=== PATIENT | male | born 1945 | race Caucasian/White ===

== ENCOUNTER 2017-10-08 14:24 | Inpatient (IN) | payer OTHER, MEDICARE ==
[~2017-10-08] VITALS: Ht 175.3 cm; Wt 119.0 kg
[~2017-10-08 14:24] MED LIST: ASPI81 PO; GABA400 PO; GLYCOPYRROLATE 1 MG/5 ML SYRINGE IV PUSH ONE; ISOS5 PO; LIDOCAINE HCL 1% PF 5 ML SYRINGE OTHER ONE; MELO15TA2 PO; NEOSTIGMINE 5 MG/5 ML SYRINGE IV PUSH ONE; PROPOFOL 200 MG/20 ML AMP IV ONE; ROCURONIUM INJ 50 MG/5 ML SYRINGE IV PUSH ONE; ROSU20 PO; SUCCINYLCHOLINE CHLORIDE 100 MG/5 ML SYRINGE IV PUSH ONE; TRIL300T PO
[2017-10-08 14:48] VITALS: BP 165/82; PULSE 74; RESP 16; TEMP 98.5; O2SAT 95
--- NOTE | 2017-10-08 15:25 | PD ---
HPI Chief Complaint: Abdominal Pain Time Seen by Provider: 15:25 Travel History International Travel<30 days: No Contact w/Intl Traveler<30days: No Traveled to known affect area: No History of Present Illness HPI Patient presents with acute right lower abdominal pain since this morning. Denies any history of kidney stones. Describes the pain is constant nature and dull. Denies nausea or vomiting. Reports no change in stools. Reports urinary frequency. Denies fever. No new rashes. Denies any previous abdominal surgeries. PFSH Past Medical History Hx Anticoagulant Therapy: Yes (asa 81mg) Asthma: No Autoimmune Disease: No Blood Disorders: No Cancer: No Cardiac Catheterization: Yes (May.17) Cardiovascular Problems: Yes (htn on meds) High Cholesterol: Yes COPD: No Coronary Artery Disease: Yes Diabetes: No Endocrine: No Glaucoma: No Genitourinary: No Hepatitis: No Hiatal Hernia: No Hypertension: No Immune Disorder: No Musculoskeletal: No Neurologic: Yes Psychiatric: No Reproductive: No Respiratory: No Seizures: Yes Thyroid Disease: No Past Surgical History Abdominal Surgery: No Cardiac Surgery: No Ear Surgery: No Endocrine Surgery: No Eye Surgery: No Genitourinary Surgery: No Gynecologic Surgery: No Oral Surgery: No Pacemaker: No Thoracic Surgery: No Social History Alcohol Use: Yes (1-2 BEERS AFTER GOLF ON TUESDAY) Tobacco Use: No Substance Use: No Allergies-Medications (Allergen,Severity, Reaction): Coded Allergies: No Known Allergies (Verified Adverse Reaction, Unknown, 10/08/17) Reported Meds & Prescriptions Reported Meds & Active Scripts Active Reported Simvastatin 20 Mg Tab 20 Mg PO DAILY Tamsulosin (Tamsulosin HCl) 0.4 Mg Cap 0.4 Mg HS Coq10 (Coenzyme Q10 (Ubidecarenone)) 50 Mg Cap Lisinopril 2.5 Mg Tab 2.5 Mg PO DAILY Furosemide 20 Mg Tab 20 Mg PO DAILY Amlodipine (Amlodipine Besylate) 5 Mg Tab 5 Mg PO DAILY Vitamin D3 (Cholecalciferol) 1,000 Unit Tab 1,000 Units PO DAILY Aspirin 81 Mg Chew 81 Mg CHEW DAILY Review of Systems General / Constitutional: No: Fever Eyes: No: Visual changes HENT: No: Headaches Cardiovascular: No: Chest Pain or Discomfort Respiratory: No: Shortness of Breath Gastrointestinal: Positive: Abdominal Pain Genitourinary: No: Dysuria Musculoskeletal: No: Pain Skin: No Rash Neurologic: No: Weakness Psychiatric: No: Depression Endocrine: No: Polydipsia Hematologic/Lymphatic: No: Easy Bruising Physical Exam Narrative GENERAL: Well-nourished, well-developed patient. SKIN: Focused skin assessment warm/dry. HEAD: Normocephalic. EYES: No scleral icterus. No injection or drainage. NECK: Supple, trachea midline. No JVD or lymphadenopathy. CARDIOVASCULAR: Regular rate and rhythm without murmurs, gallops, or rubs. RESPIRATORY: Breath sounds equal bilaterally. No accessory muscle use. GASTROINTESTINAL: Abdomen soft, diffusely tender right lower and right upper quadrant, nondistended. MUSCULOSKELETAL: No cyanosis, or edema. BACK: Nontender without obvious deformity. No CVA tenderness. Data Data Last Documented VS Vital Signs Date Time Temp Pulse Resp B/P (MAP) Pulse Ox O2 Delivery O2 Flow Rate FiO2 10/08/17 18:16 73 18 164/90 (114) 94 Room Air 10/08/17 14:48 98.5 Orders Orders Complete Blood Count With Diff (10/08/17 15:25) Comprehensive Metabolic Panel (10/08/17 15:25) Lipase (10/08/17 15:25) Lactic Acid (10/08/17 15:25) Urinalysis - C+S If Indicated (10/08/17 15:25) Ct Abd/Pel W Iv Contrast(Rout) (10/08/17 15:25) Iv Access Insert/Monitor (10/08/17 15:25) Ecg Monitoring (10/08/17 15:25) Oximetry (10/08/17 15:25) Pantoprazole Inj (Protonix Inj) (10/08/17 15:30) Sodium Chloride 0.9% Flush (Ns Flush) (10/08/17 15:30) Dicyclomine Inj (Bentyl Inj) (10/08/17 15:30) Acetamin-Hydrocod 325-5 Mg ([place] 5-325 (10/08/17 18:00) Iohexol 350 Inj (Omnipaque 350 Inj) (10/08/17 18:00) Prothrombin Time / Inr (Pt) (10/08/17 18:39) Admit Order (Ed Use Only) (10/08/17 ) Vital Signs (Adult) Q4H (10/08/17 18:48) Diet Npo (10/08/17 Dinner) Activity Oob With Assistance (10/08/17 18:48) Notify Dr: Other (10/08/17 18:48) Labs Laboratory Tests Test 10/08/17 16:16 10/08/17 17:15 White Blood Count 11.5 TH/MM3 Red Blood Count 4.62 MIL/MM3 Hemoglobin 13.9 GM/DL Hematocrit 41.6 % Mean Corpuscular Volume 89.9 FL Mean Corpuscular Hemoglobin 30.2 PG Mean Corpuscular Hemoglobin Concent 33.6 % Red Cell Distribution Width 13.2 % Platelet Count 232 TH/MM3 Mean Platelet Volume 7.7 FL CBC Comment AUTO DIFF Differential Total Cells Counted 100 Neutrophils % (Manual) 84 % Band Neutrophils % 3 % Lymphocytes % 8 % Monocytes % 3 % Eosinophils % 2 % Neutrophils # (Manual) 10.0 TH/MM3 Differential Comment FINAL DIFF MANUAL Platelet Estimate NORMAL Platelet Morphology Comment NORMAL Red Cell Morphology Comment NORMAL Urine Collection Type CLEAN CATCH Urine Color YELLOW Urine Turbidity SL CLOUDY Urine pH 8.0 Urine Specific [place] 1.015 Urine Protein NEG mg/dL Urine Glucose (UA) NEG mg/dL Urine Ketones NEG mg/dL Urine Occult Blood TRACE Urine Nitrite NEG Urine Bilirubin NEG Urine Urobilinogen 0.2 MG/DL Urine Leukocyte Esterase NEG Urine RBC 0-3 /hpf Urine Squamous Epithelial Cells 0-5 /hpf Urine Amorphous Sediment FEW Microscopic Urinalysis Comment CULT NOT INDICATED Urine Collection Time 1616 Blood Urea Nitrogen 10 MG/DL Creatinine 1.00 MG/DL Random Glucose 115 MG/DL Total Protein 7.5 GM/DL Albumin 3.7 GM/DL Calcium Level 9.4 MG/DL Alkaline Phosphatase 104 U/L Aspartate Amino Transf (AST/SGOT) 19 U/L Alanine Aminotransferase (ALT/SGPT) 21 U/L Total Bilirubin 0.7 MG/DL Sodium Level 135 MEQ/L Potassium Level 3.9 MEQ/L Chloride Level 101 MEQ/L Carbon Dioxide Level 28.8 MEQ/L Anion Gap 5 MEQ/L Estimat Glomerular Filtration Rate 74 ML/MIN Lactic Acid Level 0.8 mmol/L Lipase 109 U/L [facility] Medical Decision Making Medical Screen Exam Complete: Yes Emergency Medical Condition: Yes Differential Diagnosis Ischemic bowel, small bowel obstruction, nephrolithiasis, urinary tract infection, appendicitis Narrative Course Assessment and plan discussed with patient and at bedside. Mild leukocytosis, otherwise labs within normal limits. Coags pending. Last 72 hours Impressions Abdomen/Pelvis CT 10/08/17 1525 Signed Impressions: Service Date/Time: Sunday, October 08, 2017 17:52 - CONCLUSION: 1. Acute appendicitis. Small amount of free fluid is seen in this region and the possibility of a perforation is difficult to exclude. 2. Large umbilical hernia containing fat and small bowel. 3. Diverticulosis. 4. Atherosclerosis. Ganga Luong MD Physician Communication Physician Communication Spoke to Dr. Ly who recommends transfer to the [facility] for surgery this evening. Spoke to Dr Morris who is in agreement will admit Diagnosis Primary Impression: Appendicitis Qualified Codes: K35.80 - Unspecified acute appendicitis Jose Vann MD Oct 08, 2017 15:25
[2017-10-08] MEDS ORDERED: DICYCLOMINE HCL 20 MG/2 ML VIAL IM ONE (15:30)
[2017-10-08] MEDS ORDERED: PANTOPRAZOLE SODIUM 40 MG VIAL IVP ONE (15:30)
[2017-10-08] MEDS ORDERED: SODIUM CHLORIDE 0.9% FLUSH 10 ML FLUSH IV FLUSH PRN ×2 (15:30→19:00)
[2017-10-08] MEDS ORDERED: FURO20TA PO (15:31)
[2017-10-08] MEDS ORDERED: SIMV20TA PO (15:31)
[2017-10-08] MEDS ORDERED: COQ150CA (15:31)
[2017-10-08] MEDS ORDERED: ASPI-516 CHEW (15:31)
[2017-10-08] MEDS ORDERED: VITA100018 PO (15:31)
[2017-10-08] MEDS ORDERED: AMLO5TAB2 PO (15:31)
[2017-10-08] MEDS ORDERED: TAMS0.4C4 (15:31)
[2017-10-08] MEDS ORDERED: LISI2.5T3 PO (15:31)
[2017-10-08 16:24] LABS: HEMATOCRIT 41.6 % (39.0-51.0); HEMOGLOBIN 13.9 GM/DL (13.0-17.0); MEAN CELL VOLUME 89.9 FL (80.0-100.0); MEAN CORPUSCULAR HEMOGLOBIN 30.2 PG (27.0-34.0); MEAN CORPUSCULAR HGB CONC 33.6 % (32.0-36.0); MEAN PLATELET VOLUME 7.7 FL (7.0-11.0); PLATELET COUNT 232 TH/MM3 (150-450); RED BLOOD COUNT 4.62 MIL/MM3 (4.50-5.90); RED CELL DISTRIBUTION WIDTH 13.2 % (11.6-17.2); WHITE BLOOD COUNT 11.5 TH/MM3 (4.0-11.0)
[2017-10-08 16:26] LABS: BILIRUBIN, URINE NEG (NEG); BLOOD, URINE TRACE (NEG); GLUCOSE,URINE NEG (NEG); KETONE, URINE NEG (NEG); NITRITE,URINE NEG (NEG); URINE COLOR YELLOW (YELLW/STRAW); URINE LEUKOCYTE ESTERASE NEG (NEG)
[2017-10-08 17:07] LABS: AMORPHOUS SEDIMENT, URINE FEW; RBC, URINE 0-3 /hpf (0-3); SQUAMOUS EPITHELIAL CELL URINE 0-5 /hpf (0-5)
[2017-10-08 17:15] VITALS: O2SAT 98
[2017-10-08 17:16] LABS: BANDS 3 % (0-6); LYMPHOCYTES 8 % (9-44); MONOCYTES 3 % (0-8); POLYS (SEG NEUTROPHILS) 84 % (16-70)
[2017-10-08 17:30] LABS: CHLORIDE 101 MEQ/L (98-107); SODIUM (NA) 135 MEQ/L (136-145)
[2017-10-08 17:34] LABS: ALBUMIN 3.7 GM/DL (3.4-5.0); BICARBONATE 28.8 MEQ/L (21.0-32.0); CALCIUM 9.4 MG/DL (8.5-10.1); GLUCOSE,RANDOM 115 MG/DL (74-106)
[2017-10-08 17:35] LABS: BLOOD UREA NITROGEN 10 MG/DL (7-18)
[2017-10-08 17:37] LABS: ALT (GPT) 21 U/L (12-78); AST (GOT) 19 U/L (15-37)
[2017-10-08 17:38] LABS: GLOMERULAR FILTRATION RATE 74 ML/MIN (>89)
[2017-10-08 17:39] LABS: TOTAL BILIRUBIN ADULT 0.7 MG/DL (0.2-1.0); TOTAL PROTEIN 7.5 GM/DL (6.4-8.2)
[2017-10-08 17:40] LABS: ALKALINE PHOSPHATASE 104 U/L (45-117)
[2017-10-08] MEDS ORDERED: ACETAMINOPHEN/HYDROcodone 325 MG/5 MG TAB PO ONE (18:00)
[2017-10-08] MEDS ORDERED: IOHEXOL 350 MG/ML 10 ML VIAL (for RAD DIAG) IVCONTRAST ONE (18:00)
[2017-10-08 18:16] VITALS: BP 164/90; PULSE 73; RESP 18; O2SAT 94
--- NOTE | 2017-10-08 18:28 | RADRPT ---
EXAM DATE/TIME: 10/08/2017 17:52 [place] COMPARISON: No previous studies available for comparison. INDICATIONS : Right lower abdominal pain since yesterday. IV CONTRAST: 75 cc Omnipaque 350 (iohexol) IV ORAL CONTRAST: No oral contrast ingested. RADIATION DOSE: 22.28 CTDIvol (mGy) MEDICAL HISTORY : Hypertension. CAD SURGICAL HISTORY : None. ENCOUNTER: Initial ACUITY: 2 days PAIN SCALE: 9/10 LOCATION: Right lower quadrant TECHNIQUE: Volumetric scanning of the abdomen and pelvis was performed. Using automated exposure control and ad justment of the mA and/or kV according to patient size, radiation dose was kept as low as reasonably achievable to obtain optimal diagnostic quality images. DICOM format image data is available electro nically for review and comparison. FINDINGS: Lung bases are clear. There are degenerative changes of the spine noted. No pleural or pericardial ef fusions. Liver, gallbladder, kidneys, adrenals, spleen, pancreas are unremarkable. Prostate, urinary bladder are unremarkable. Diverticulosis of the sigmoid and descending colon without diverticulitis. There are inflammatory changes seen in the right lower quadrant near the base of the cecum and surrou nding the appendix which is abnormally enlarged measuring up to 1.4 cm in diameter. The appearance is characteristic of acute appendicitis. No free air identified, however a small amount of free fluid i s present.. There is a large umbilical hernia measuring 4.4 cm in transverse dimension at the intra-a bdominal wall, containing a small bowel loop and intra-abdominal fat, hernia sac measuring 9.7 x 6.3 cm in transverse and AP dimension. Atherosclerotic calcifications are seen. CONCLUSION: 1. Acute appendicitis. Small amount of free fluid is seen in this region and the possibility of a per foration is difficult to exclude. 2. Large umbilical hernia containing fat and small bowel. 3. Diverticulosis. 4. Atherosclerosis. Ganga Luong MD on October 08, 2017 at 18:22 Board Certified Radiologist. This report was verified electronically.
[2017-10-08] MEDS ORDERED: NALOXONE HCL 0.4 MG/ML AMP IV PUSH PRN (19:00)
[2017-10-08] MEDS ORDERED: BISACODYL 10 MG SUPP RECTAL PRN (19:00)
[2017-10-08] MEDS ORDERED: LACTULOSE SYRUP 20 GM/30 ML CUP PO PRN (19:00)
[2017-10-08] MEDS ORDERED: ONDANSETRON HCL 4 MG/2 ML VIAL IVP PRN (19:00)
[2017-10-08] MEDS ORDERED: ACETAMINOPHEN 325 MG TAB PO PRN (19:00)
[2017-10-08 19:01] LABS: PROTHROMBIN TIME - PATIENT 10.4 SEC (9.8-11.6)
[2017-10-08 20:15] VITALS: PULSE 74
[2017-10-08] MEDS ORDERED: SODIUM CHLORID 0.9% 500 ML IV PRN (20:15)
[2017-10-08] MEDS ORDERED: CHLORHEXIDINE GLUCONATE 2 % 1 PACK (2 CLOTHS) TOPICAL PRN (20:15)
[2017-10-08] MEDS ORDERED: LACTATED RINGER'S 1000 ML IV PRN (20:15)
[2017-10-08] MEDS ORDERED: POVIDONE IODINE 5% (ANTISEPSIS KIT) 4 APPLICATIONS EACH NARE PRN (20:15)
[2017-10-08] MEDS ORDERED: METOPROLOL TARTRATE 25 MG TAB PO PRN (20:15)
[2017-10-08] MEDS: SODIUM CHLORIDE 0.9% FLUSH 10 ML FLUSH IV FLUSH SCH (20:39)
[2017-10-08] MEDS ORDERED: PIPERACILLIN/TAZ 4.5 GM VIAL 4.5 GM in SODIUM CHLORIDE 0.9% INJ 100 ML IV ONE (21:00)
[2017-10-08] MEDS: DOCUSATE SODIUM 50 MG/SENNA 8.6 MG TAB PO SCH (21:00)
--- NOTE | 2017-10-08 21:08 | MH ---
cc: Stacie Louis MD DATE OF ADMISSION: 10/08/2017 ADMITTING DIAGNOSIS: Acute appendicitis. HISTORY OF PRESENT DISEASE: This is a 71-year-old male with very complex past medical history, who presents to the emergency room at the [facility] with history of pain since this morning. The patient states that the pain is constant, dull, was initially mid abdomen now it is more in the right lower quadrant. No nausea or vomiting. No diarrhea. The patient was worked up, found to have a clinical picture of acute appendicitis as well as CT findings, hence the admission. PAST MEDICAL HISTORY: That of coronary artery disease and IN with catheterization in 2006, hypercholesteremia, diabetes but the patient is not taking medications, seizures. SURGICAL HISTORY: That of rotator cuff surgery in the past. SOCIAL HISTORY: The patient drinks about to 1-2 beers a day. Does not smoke. 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 MEDICATIONS: Include aspirin, amlodipine, Lasix, lisinopril, tamsulosin and simvastatin. PHYSICAL EXAMINATION: GENERAL: Reveals a 71-year-old male appearing older than his actual age. HEENT: Normocephalic. No trauma to the head. Pupils equal, reactive. Extraocular muscles intact. NECK: Bilateral carotid pulses and a faint right-sided bruit. CHEST: Bilateral breath sounds, decreased over both lung mann consistent with moderate COPD. The patient has barrel chest and protrusion of the ribs. HEART: Regular rate and rhythm. No murmurs. ABDOMEN: Somewhat obese, soft, hypoactive bowel sounds. Large umbilical hernia which is clearly stuck and was inflamed, probably several times in the midline measuring about 10 cm in diameter. On exam, the patient is very tender in the right lower quadrant where there is positive rebound and guarding. There is referred tenderness from the left side. Groins are normal. EXTREMITIES: The patient has palpable femoral pulses. Distal pulses only by Doppler. He has posterior tibial and dorsalis pedis by Doppler, which are not very strong. No signs of acute vascular deficit. The patient has edema in lower extremities, more noticeable below the level of the knee, which some of it is noncompressible and chronic, sounds like this is pitting edema from clearly poorly controlled hypertension. BACK: Grossly normal with some kyphoscoliosis. NEUROLOGIC: The patient is grossly intact. IMPRESSION: Patient with a myriad of medical problems and now acute appendicitis. In the face of a large umbilical hernia I believe this will rim turning finisher to be open surgery, but will give it a laparoscopic try with modified approach and see how it goes. Stacie Louis MD SJ/rt , 08:48 PM , 09:07 PM
[2017-10-08] MEDS ORDERED: MORPHINE SULFATE 2 MG/ML SYRINGE IV PUSH PRN (22:15)
[2017-10-08] MEDS ORDERED: DO NOT ADM ANY ANTICOAGULANT DRUGS PRN (22:18)
[2017-10-08] MEDS ORDERED: *morphine SULFATE 4 MG/ML PERIprocedure ONLY ONE (22:29)
[2017-10-08] MEDS: SODIUM CHLOR 0.9% 1000 ML INJ 1,000 ML IV SCH (22:30)
[2017-10-08] MEDS ORDERED: PIPERACIL-TAZO 3.375 GM PREMIX 50 ML IV SCH (22:30)
--- NOTE | 2017-10-08 22:39 | MP ---
cc: Stacie Louis MD DATE OF OPERATION: 10/08/2017 POSTOPERATIVE DIAGNOSIS: Acute gangrenous appendicitis. POSTOPERATIVE DIAGNOSIS: Acute gangrenous appendicitis. PROCEDURE PERFORMED: Attempted laparoscopic conversion to open appendectomy. SURGEON: Stacie Louis MD ANESTHESIA: General. ESTIMATED BLOOD LOSS: 50 mL DESCRIPTION OF PROCEDURE: The patient prepped and draped in usual fashion and first a supraumbilical small incision was made and Kwame cannula placed under direct vision. The incision is made fairly high and paramedial because the patient has a huge umbilical hernia and I was hoping I could get around this thing while doing the repair. However, upon the entry of the abdomen is noted the patient has fairly significant adhesions between the small bowel, anterior abdominal wall, omentum, and surrounding organs including the hernia being in the way, so this approach is abandoned. This converted to open appendectomy. Right lower quadrant incision is made about an inch above McBurney's point, deepened down to external oblique aponeurosis, which was opened in direction of the fibers, retracted laterally and then internal and transversus abdominis muscle are opened by muscle splitting incision. Peritoneum reached. Peritoneum is opened transversely and the abdomen entered. There was some turbid fluid present, which was suctioned off. The cecum is delivered. Appendix and is in the paracecal position, measures about 4 inches in length. It is swollen and distal part where there is a gangrenous purulent area. The appendix was elevated with Jordyn clamp and then mesoappendix is tied off with a 0 Vicryl stick tie and the appendix is amputated with a KENAN stapler. The area irrigated with saline. Meticulous hemostasis obtained with the 2 more 0 Vicryl stitches [id number] and then everything dropped back into the abdomen. The small bowel was run for distal part. No abnormalities are found. Abdomen was irrigated with saline and closed in layers, using #1 Vicryl for peritoneum, #1 Vicryl for internal oblique muscle approximation and #1 Vicryl [id number] for external oblique aponeurosis. Skin was approximated with hal. The supraumbilical incision was closed with 0 Vicryl [id number] and hal. The patient tolerated the procedure well and was taken to recovery room in stable condition. It should be noted the patient will be admitted to medicine. I talked to ____ about it and I will consult. Pain medication orders are placed. Stacie Louis MD SJ/rt , 10:20 PM , 10:39 PM
[2017-10-08] MEDS ORDERED: diphenhydrAMINE HCL 50 MG/ML VIAL ONE (22:44)
[2017-10-08] MEDS ORDERED: HYDROmorphone HCL PF 2 MG/ML VIAL ONE ×2 (22:53→23:13)
[2017-10-08] MEDS ORDERED: ENOXAPARIN SODIUM 40 MG/0.4 ML SYRINGE SQ SCH (23:00)
[2017-10-08] MEDS: fentaNYL 25 MCG/HR PATCH T-DERMAL SCH (23:22)
--- NOTE | 2017-10-08 23:51 | HHI.HP ---
[facility] Phys[facility] Unknown Admission Diagnosis Appendicitis Diagnoses: Chief Complaint: Abdominal pain Travel History International Travel<30 Days: No Contact w/Intl Traveler <30 Da: No Traveled to Known Affected Are: No History of Present Illness 71-year-old male with a history of hypertension, hyperlipidemia, CAD, sleep apnea and BPH resented to the ED with complaints of right-sided abdominal pain. Patient states the pain was a constant, 8/10, dull mid right abdominal pain with associated nausea and no radiation when he presented to the ED. Patient was examined in PACU status post appendectomy and currently states his pain is a 5/10 and has decreased with the use of Dilaudid. He currently denies any chest pain, shortness of breath, fevers or chills. Review of Systems Except as stated in HPI: all other systems reviewed are Neg Past Family Social History Past Medical History Hyperlipidemia Hypertension BPH CAD Past Surgical History Right rotator cuff surgery Reported Medications Reported Meds & Active Scripts Active Reported Simvastatin 20 Mg Tab 20 Mg PO DAILY Tamsulosin (Tamsulosin HCl) 0.4 Mg Cap 0.4 Mg HS Coq10 (Coenzyme Q10 (Ubidecarenone)) 50 Mg Cap Lisinopril 2.5 Mg Tab 2.5 Mg PO DAILY Furosemide 20 Mg Tab 20 Mg PO DAILY Amlodipine (Amlodipine Besylate) 5 Mg Tab 5 Mg PO DAILY Vitamin D3 (Cholecalciferol) 1,000 Unit Tab 1,000 Units PO DAILY Aspirin 81 Mg Chew 81 Mg CHEW DAILY Allergies: Coded Allergies: morphine (Verified Allergy, Intermediate, HIVES, 10/08/17) Active Ordered Medications Current Medications Medications (Trade) Dose Ordered Sig/Angi Route Start Time Stop Time Status Last Admin Sodium Chloride 1,000 ml @ 100 mls/hr Q10H IV 10/08/17 18:51 10/08/17 22:30 (NS Flush) 2 ml UNSCH PRN IV FLUSH 10/08/17 19:00 (NS Flush) 2 ml BID IV FLUSH 10/08/17 21:00 10/08/17 20:39 (Tylenol) 650 mg Q4H PRN PO 10/08/17 19:00 (Zofran Inj) 4 mg Q6H PRN IVP 10/08/17 19:00 (Narcan Inj) 0.4 mg UNSCH PRN IV PUSH 10/08/17 19:00 (Callie-Colace) 1 tab BID PO 10/08/17 21:00 (Milk Of Magnesia Liq) 30 ml Q12H PRN PO 10/08/17 19:00 (Senokot) 17.2 mg Q12H PRN PO 10/08/17 19:00 (Dulcolax Supp) 10 mg DAILY PRN RECTAL 10/08/17 19:00 (Lactulose Liq) 30 ml DAILY PRN PO 10/08/17 19:00 (Duragesic 25 Mcg Patch.72 Hr) 1 patch Q3D T-DERMAL 10/08/17 22:15 10/08/17 23:22 (Percocet 5-325 Mg) 1 tab Q4H PRN PO 10/08/17 22:15 Miscellaneous Information ALL NURSING DEPARTME... UNSCH PRN .XX 10/08/17 22:18 10/09/17 22:17 (Lovenox Inj) 40 mg Q24H SQ 10/09/17 23:00 Piperacillin Sod/ Tazobactam Sod 50 ml @ 100 mls/hr Q8H IV 10/09/17 05:00 10/09/17 21:29 (Dilaudid Pf Inj) 0.5 mg Q4H PRN IV PUSH 10/08/17 23:30 (Duoneb Neb) 1 ampule ONCE ONCE NEB 10/09/17 00:30 10/09/17 00:31 UNV (Duoneb Neb) 1 ampule Q6HR NEB NEB 10/09/17 04:00 UNV Family History Dad: [place] Social History Tobacco use: Quit 30 years ago Alcohol use: Occasionally Physical Exam Vital Signs Vital Signs Date Time Temp Pulse Resp B/P (MAP) Pulse Ox O2 Delivery O2 Flow Rate FiO2 10/08/17 22:18 97.9 77 28 150/75 (100) 90 Simple Mask 8 10/08/17 20:15 97.8 74 24 157/74 (101) 94 10/08/17 20:15 74 10/08/17 20:15 94 10/08/17 18:16 73 18 164/90 (114) 94 Room Air 10/08/17 17:15 98 Room Air 10/08/17 14:48 98.5 74 16 165/82 (109) 95 Physical Exam GENERAL: This is a well-nourished, obese patient, in no apparent distress. SKIN: No rashes, ecchymoses or lesions. Cool and dry. Right abdomen incision covered with [place]. HEAD: Atraumatic. Normocephalic. EYES: Pupils equal round and reactive. ENT: Nose without bleeding, purulent drainage or septal hematoma. Airway patent. CARDIOVASCULAR: Regular rate and rhythm without murmurs, gallops, or rubs. RESPIRATORY: Clear to auscultation. Diminished bases. Breath sounds equal bilaterally. No wheezes, rales, or rhonchi. GASTROINTESTINAL: Abdomen soft, tender, nondistended. Large umbilical hernia. Right abdomen incision. No guarding. MUSCULOSKELETAL: Extremities without clubbing, cyanosis, or edema. No calf tenderness. NEUROLOGICAL: Awake and alert. Motor and sensory grossly within normal limits. Normal speech. Laboratory Laboratory Tests Test 10/08/17 16:16 10/08/17 17:15 White Blood Count 11.5 Red Blood Count 4.62 Hemoglobin 13.9 Hematocrit 41.6 Mean Corpuscular Volume 89.9 Mean Corpuscular Hemoglobin 30.2 Mean Corpuscular Hemoglobin Concent 33.6 Red Cell Distribution Width 13.2 Platelet Count 232 Mean Platelet Volume 7.7 CBC Comment AUTO DIFF Differential Total Cells Counted 100 Neutrophils % (Manual) 84 Band Neutrophils % 3 Lymphocytes % 8 Monocytes % 3 Eosinophils % 2 Neutrophils # (Manual) 10.0 Differential Comment FINAL DIFF MANUAL Platelet Estimate NORMAL Platelet Morphology Comment NORMAL Red Cell Morphology Comment NORMAL Prothrombin Time 10.4 Prothromb Time International Ratio 1.0 Urine Collection Type CLEAN CATCH Urine Color YELLOW Urine Turbidity SL CLOUDY Urine pH 8.0 Urine Specific [place] 1.015 Urine Protein NEG Urine Glucose (UA) NEG Urine Ketones NEG Urine Occult Blood TRACE Urine Nitrite NEG Urine Bilirubin NEG Urine Urobilinogen 0.2 Urine Leukocyte Esterase NEG Urine RBC 0-3 Urine Squamous Epithelial Cells 0-5 Urine Amorphous Sediment FEW Microscopic Urinalysis Comment CULT NOT INDICATED Urine Collection Time 1616 Blood Urea Nitrogen 10 Creatinine 1.00 Random Glucose 115 Total Protein 7.5 Albumin 3.7 Calcium Level 9.4 Alkaline Phosphatase 104 Aspartate Amino Transf (AST/SGOT) 19 Alanine Aminotransferase (ALT/SGPT) 21 Total Bilirubin 0.7 Sodium Level 135 Potassium Level 3.9 Chloride Level 101 Carbon Dioxide Level 28.8 Anion Gap 5 Estimat Glomerular Filtration Rate 74 Lactic Acid Level 0.8 Lipase 109 Result Diagram: 10/08/17 1616 10/08/17 1715 Imaging Last Impressions Abdomen/Pelvis CT 10/08/17 1525 Signed Impressions: Service Date/Time: Sunday, October 08, 2017 17:52 - CONCLUSION: 1. Acute appendicitis. Small amount of free fluid is seen in this region and the possibility of a perforation is difficult to exclude. 2. Large umbilical hernia containing fat and small bowel. 3. Diverticulosis. 4. Atherosclerosis. MD Alfredo Higgins VTE Risk Assessment Alfredo VTE Risk Assessment: No/Low Risk (score <= 1) Caprini Risk Assessment Model Point Value = 1 Point Value = 2 Point Value = 3 Point Value = 5 Age 41-60 Minor surgery BMI > 25 kg/m2 Swollen legs Varicose veins or History of unexplained or recurrent spontaneous Oral contraceptives or hormone replacement Sepsis (< 1 month) Serious lung disease, including pneumonia (< 1 month) Abnormal pulmonary function Acute myocardial infarction Congestive heart failure (< 1 month) History of inflammatory bowel disease Medical patient at bed rest Age 61-74 Arthroscopic surgery Major open surgery (> 45 min) Laparoscopic surgery (> 45 min) Malignancy Confined to bed (> 72 hours) Immobilizing plaster cast Central venous access Age >= 75 History of VTE Family history of VTE Factor V Leiden Prothrombin [id number] Lupus anticoagulant Anticardiolipin antibodies Elevated serum homocysteine Heparin-induced thrombocytopenia Other congenital or acquired thrombophilia Stroke (< 1 month) Elective arthroplasty Hip, pelvis, or leg fracture Acute spinal cord injury (< 1 month) Prophylaxis Regimen Total Risk Factor Score Risk Level Prophylaxis Regimen 0-1 Low Early ambulation 2 Moderate Order ONE of the following: *Sequential Compression Device (SCD) *Heparin 5000 units SQ BID 3-4 Higher Order ONE of the following medications: *Heparin 5000 units SQ TID *Enoxaparin/Lovenox 40 mg SQ daily (WT < 150 kg, CrCl > 30 mL/min) *Enoxaparin/Lovenox 30 mg SQ daily (WT < 150 kg, CrCl > 10-29 mL/min) *Enoxaparin/Lovenox 30 mg SQ BID (WT < 150 kg, CrCl > 30 mL/min) AND/OR *Sequential Compression Device (SCD) 5 or more Highest Order ONE of the following medications: *Heparin 5000 units SQ TID (Preferred with Epidurals) *Enoxaparin/Lovenox 40 mg SQ daily (WT < 150 kg, CrCl > 30 mL/min) *Enoxaparin/Lovenox 30 mg SQ daily (WT < 150 kg, CrCl > 10-29 mL/min) *Enoxaparin/Lovenox 30 mg SQ BID (WT < 150 kg, CrCl > 30 mL/min) AND *Sequential Compression Device (SCD) Assessment and Plan Problem List: (1) Appendicitis ICD Code: K37 - Unspecified appendicitis Status: Acute (2) HTN (hypertension) ICD Code: I10 - Essential (primary) hypertension (3) Hyperlipidemia ICD Code: E78.5 - Hyperlipidemia, unspecified Assessment and Plan 71-year-old male with a history of hypertension, hyperlipidemia, CAD, sleep apnea and BPH resented to the ED with complaints of right-sided abdominal pain. Appendicitis Abdomen/pelvis CT reviewed and shows acute appendicitis, large umbilical hernia containing fat and small bowel, diverticulosis and atherosclerosis. -General surgery was consulted, patient is status post appendectomy -Pain management with IV Dilaudid and by mouth Percocet Sleep apnea, possible underlining COPD -Incentive spirometer -DuoNeb scheduled -CPAP as needed Hypertension, chronic -Resumed home medications Norvasc 5 mg by mouth daily, lisinopril 2.5 mg by mouth daily, monitor vitals Hyperlipidemia, chronic -Resumed home medications pravastatin 40 mg DVT prophylaxis: SCDs Discussed Condition With Patient and RN Physician Certification 2 Midnight Certification Type: Admission for Inpatient Services Order for Inpatient Services The services are ordered in accordance with Medicare regulations or non- Medicare payer requirements, as applicable. In the case of services not specified as inpatient-only, they are appropriately provided as inpatient services in accordance with the 2-midnight benchmark. Estimated LOS (days): 2 days is the estimated time the patient will need to remain in the hospital, assuming treatment plan goals are met and no additional complications. Post-Hospital Plan: Home Problem Qualifiers (1) Appendicitis: Qualified Codes: K35.80 - Unspecified acute appendicitis Keren Peterson Oct 08, 2017 23:50
[2017-10-08] MEDS ORDERED: RESP: ALBUTEROL 2.5 MG/IPRATROPIUM 0.5 MG NEB (SCH) ONE (23:57)
[2017-10-09] VITALS (8 sets, daily range): BP systolic 127–161; BP diastolic 63–76; PULSE 70–92; RESP 18–20; TEMP 97.4–98.9; O2SAT 90–95
[2017-10-09] MEDS ORDERED: RESP: ALBUTEROL 2.5 MG/IPRATROPIUM 0.5 MG NEB (SCH) NEB ONE (00:30)
[2017-10-09] MEDS: SODIUM CHLOR 0.9% 1000 ML INJ 1,000 ML IV SCH ×2 (05:17→16:13)
[2017-10-09] MEDS: PIPERACIL-TAZO 3.375 GM PREMIX 50 ML IV SCH ×3 (05:17→21:43)
[2017-10-09 06:39] LABS: AUTOMATED NEUTROPHIL # 9.6 TH/MM3 (1.8-7.7); BASOPHIL % 0.4 % (0.0-2.0); EOSINOPHIL # 0.2 TH/MM3 (0-0.4); EOSINOPHIL % 1.6 % (0.0-4.0); HEMATOCRIT 40.6 % (39.0-51.0); HEMOGLOBIN 13.4 GM/DL (13.0-17.0); LYMPHOCYTE # 1.2 TH/MM3 (1.0-4.8); MEAN CELL VOLUME 92.6 FL (80.0-100.0); MEAN CORPUSCULAR HEMOGLOBIN 30.7 PG (27.0-34.0); MEAN CORPUSCULAR HGB CONC 33.1 % (32.0-36.0); MEAN PLATELET VOLUME 8.4 FL (7.0-11.0); MONO % 9.3 % (0.0-8.0); MONOCYTE # 1.1 TH/MM3 (0-0.9); NEUT % 78.7 % (16.0-70.0); PLATELET COUNT 200 TH/MM3 (150-450); RED BLOOD COUNT 4.38 MIL/MM3 (4.50-5.90); RED CELL DISTRIBUTION WIDTH 13.2 % (11.6-17.2); WHITE BLOOD COUNT 12.3 TH/MM3 (4.0-11.0)
[2017-10-09 07:00] LABS: BICARBONATE 27.8 MEQ/L (21.0-32.0); CALCIUM 8.6 MG/DL (8.5-10.1)
[2017-10-09] MEDS: RESP: ALBUTEROL 2.5 MG/IPRATROPIUM 0.5 MG NEB (SCH) NEB ×3 (09:18→21:21)
--- NOTE | 2017-10-09 10:30 | HHI.PR ---
Subjective Remarks Patient seen and examined this morning. Status post appendectomy. He reports some abdominal pain from the incision sites as well as mild pain in the abdomen due to the procedure. Reports that overall the pain is improved from admission. Tolerating his pain medications as prescribed. Has an umbilical hernia that is reducible, and he is said that it was not repaired during the appendectomy. Denies any chest pain, shortness of breath, or vomiting. Does admit to feeling mildly nauseous. Denies a bowel movement. Objective Vitals Vital Signs Date Time Temp Pulse Resp B/P (MAP) Pulse Ox O2 Delivery O2 Flow Rate FiO2 10/09/17 09:20 94 Nasal Cannula 3.00 10/09/17 04:35 97.5 72 19 127/71 (89) 94 10/09/17 00:45 97.4 70 19 142/65 (90) 95 10/09/17 00:15 98.2 62 25 146/67 (93) 93 Nasal Cannula 3 10/09/17 00:00 59 20 142/67 (92) 95 Nasal Cannula 3 10/08/17 23:45 59 22 145/73 (97) 91 Nasal Cannula 3 10/08/17 23:30 60 24 155/77 (103) 94 Nasal Cannula 3 10/08/17 23:15 57 26 151/68 (95) 92 Simple Mask 8 10/08/17 23:00 57 21 157/74 (101) 92 Simple Mask 8 10/08/17 22:45 74 25 168/74 (105) 93 Simple Mask 8 10/08/17 22:30 77 24 179/74 (109) 89 Simple Mask 8 10/08/17 22:18 97.9 77 28 150/75 (100) 90 Simple Mask 8 10/08/17 20:15 97.8 74 24 157/74 (101) 94 10/08/17 20:15 74 10/08/17 20:15 94 10/08/17 18:16 73 18 164/90 (114) 94 Room Air 10/08/17 17:15 98 Room Air 10/08/17 14:48 98.5 74 16 165/82 (109) 95 I/O 10/08/17 10/08/17 10/08/17 10/09/17 10/09/17 10/09/17 07:00 15:00 23:00 07:00 15:00 23:00 Intake Total 2510 ml Output Total 400 ml 775 ml Balance -400 ml 1735 ml Intake Oral 410 ml IV Total 1100 ml Other 1000 ml Output Urine Total 400 ml 725 ml Estimated Blood Loss 50 ml # Bowel Movements 0 Result Diagram: 10/09/17 0500 10/09/17 0500 Imaging Last Impressions Abdomen/Pelvis CT 10/08/17 1525 Signed Impressions: Service Date/Time: Sunday, October 08, 2017 17:52 - CONCLUSION: 1. Acute appendicitis. Small amount of free fluid is seen in this region and the possibility of a perforation is difficult to exclude. 2. Large umbilical hernia containing fat and small bowel. 3. Diverticulosis. 4. Atherosclerosis. Ganga Luong MD Objective Remarks GEN: Well-developed, well-nourished patient. No acute distress. CV: Regular rate and rhythm without obvious murmurs LUNGS: Clear to auscultation bilaterally. Normal respiratory effort. No wheezes , rales, rhonchi. GI: Soft, nontender, nondistended. Umbilical hernia that is reducible. Incision sites are clean dry and intact with bandage covering them. No palpable masses. Bowel sounds WNL. EXT: No edema. NEURO/PSYCH: Afocal. Awake, alert, and oriented x3. Appropriate insight and judgment. Procedures 10/08/17 Attempted laparoscopic conversion to open appendectomy. Medications and IVs Current Medications Medications (Trade) Dose Ordered Sig/Angi Route Start Time Stop Time Status Last Admin Sodium Chloride 1,000 ml @ 100 mls/hr Q10H IV 10/08/17 18:51 10/09/17 05:17 (NS Flush) 2 ml UNSCH PRN IV FLUSH 10/08/17 19:00 (NS Flush) 2 ml BID IV FLUSH 10/08/17 21:00 10/08/17 20:39 (Tylenol) 650 mg Q4H PRN PO 10/08/17 19:00 (Zofran Inj) 4 mg Q6H PRN IVP 10/08/17 19:00 (Narcan Inj) 0.4 mg UNSCH PRN IV PUSH 10/08/17 19:00 (Callie-Colace) 1 tab BID PO 10/08/17 21:00 (Milk Of Magnesia Liq) 30 ml Q12H PRN PO 10/08/17 19:00 (Senokot) 17.2 mg Q12H PRN PO 10/08/17 19:00 (Dulcolax Supp) 10 mg DAILY PRN RECTAL 10/08/17 19:00 (Lactulose Liq) 30 ml DAILY PRN PO 10/08/17 19:00 (Duragesic 25 Mcg Patch.72 Hr) 1 patch Q3D T-DERMAL 10/08/17 22:15 10/08/17 23:22 (Percocet 5-325 Mg) 1 tab Q4H PRN PO 10/08/17 22:15 Miscellaneous Information ALL NURSING DEPARTME... UNSCH PRN .XX 10/08/17 22:18 10/09/17 22:17 (Lovenox Inj) 40 mg Q24H SQ 10/09/17 23:00 Piperacillin Sod/ Tazobactam Sod 50 ml @ 100 mls/hr Q8H IV 10/09/17 05:00 10/09/17 21:29 10/09/17 05:17 (Dilaudid Pf Inj) 0.5 mg Q4H PRN IV PUSH 10/08/17 23:30 (Duoneb Neb) 1 ampule Q6HR NEB NEB 10/09/17 04:00 10/09/17 09:18 (Norvasc) 5 mg DAILY PO 10/09/17 09:00 (Aspirin Chew) 81 mg DAILY CHEW 10/09/17 09:00 (Lasix) 20 mg DAILY PO 10/09/17 09:00 (Flomax) 0.4 mg HS PO 10/09/17 21:00 (Prinivil) 2.5 mg DAILY PO 10/09/17 09:00 (Pravachol) 40 mg DAILY PO 10/09/17 09:00 A/P Problem List: (1) Appendicitis ICD Code: K37 - Unspecified appendicitis Status: Acute (2) HTN (hypertension) ICD Code: I10 - Essential (primary) hypertension (3) Hyperlipidemia ICD Code: E78.5 - Hyperlipidemia, unspecified Assessment and Plan 71-year-old male with a history of hypertension, hyperlipidemia, CAD, sleep apnea and BPH resented to the ED with complaints of right-sided abdominal pain. Status post open appendectomy Gangrenous appendicitis Abdomen/pelvis CT reviewed and shows acute appendicitis, large umbilical hernia containing fat and small bowel, diverticulosis and atherosclerosis. -General surgery was consulted, patient is status post appendectomy -Pain management with IV Dilaudid and by mouth Percocet Sleep apnea, possible underlining COPD -Incentive spirometer -DuoNeb scheduled -CPAP as needed Hypertension, chronic -Resumed home medications Norvasc 5 mg by mouth daily, lisinopril 2.5 mg by mouth daily, monitor vitals Hyperlipidemia, chronic -Resumed home medications pravastatin 40 mg DVT prophylaxis: SCDs Discharge Planning Pending medical clearance and further workup at this time. Problem Qualifiers (1) Appendicitis: Qualified Codes: K35.80 - Unspecified acute appendicitis Sai Birmingham MD, R3 Oct 09, 2017 10:30
[2017-10-09] MEDS: LISINOPRIL 5 MG TAB PO SCH (10:31)
[2017-10-09] MEDS: amLODIPine BESYLATE 5 MG TAB PO SCH (10:31)
[2017-10-09] MEDS: ASPIRIN 81 MG CHEW TAB CHEW SCH (10:32)
[2017-10-09] MEDS: PRAVASTATIN SOD 40 MG TAB PO SCH (10:32)
[2017-10-09] MEDS: FUROSEMIDE 20 MG TAB PO SCH (10:32)
[2017-10-09] MEDS: DOCUSATE SODIUM 50 MG/SENNA 8.6 MG TAB PO SCH ×2 (10:32→21:41)
[2017-10-09] MEDS: SODIUM CHLORIDE 0.9% FLUSH 10 ML FLUSH IV FLUSH SCH ×2 (10:34→21:42)
[2017-10-09] MEDS: HYDROmorphone HCL PF 2 MG/ML VIAL IV PUSH PRN ×2 (12:14→18:08)
--- NOTE | 2017-10-09 12:27 | EKG ---
Date Performed: 10/08/2017 Time Performed: 20:18:40 PTAGE: 71 years EKG: Sinus rhythm BORDERLINE ECG Since PREVIOUS TRACING , no significant change noted PREVIOUS TRACIN07/23/2008 12.54 DOCTOR: Wilberto Montenegro Interpretating Date/Time 10/09/2017 12:26:32
--- NOTE | 2017-10-09 14:17 | PD.CAR.PN ---
CVT Progress Note Subjective/Hospital Course: 10/09/17 Doing well Incision clean dry Abdomen soft active BS Needs to be OO.High risk for pneumonia. DC Angie Objective: Vital Signs Date Time Temp Pulse Resp B/P (MAP) Pulse Ox O2 Delivery O2 Flow Rate FiO2 10/09/17 12:59 18 10/09/17 12:00 98.8 78 18 136/66 (89) 93 10/09/17 09:20 94 Nasal Cannula 3.00 10/09/17 08:00 98.2 85 18 133/63 (86) 92 10/09/17 04:35 97.5 72 19 127/71 (89) 94 10/09/17 00:45 97.4 70 19 142/65 (90) 95 10/09/17 00:15 98.2 62 25 146/67 (93) 93 Nasal Cannula 3 10/09/17 00:00 59 20 142/67 (92) 95 Nasal Cannula 3 10/08/17 23:45 59 22 145/73 (97) 91 Nasal Cannula 3 10/08/17 23:30 60 24 155/77 (103) 94 Nasal Cannula 3 10/08/17 23:15 57 26 151/68 (95) 92 Simple Mask 8 10/08/17 23:00 57 21 157/74 (101) 92 Simple Mask 8 10/08/17 22:45 74 25 168/74 (105) 93 Simple Mask 8 10/08/17 22:30 77 24 179/74 (109) 89 Simple Mask 8 10/08/17 22:18 97.9 77 28 150/75 (100) 90 Simple Mask 8 10/08/17 20:15 97.8 74 24 157/74 (101) 94 10/08/17 20:15 74 10/08/17 20:15 94 10/08/17 18:16 73 18 164/90 (114) 94 Room Air 10/08/17 17:15 98 Room Air 10/08/17 14:48 98.5 74 16 165/82 (109) 95 Labs: Laboratory Tests Test 10/09/17 05:00 10/09/17 13:41 White Blood Count 12.3 TH/MM3 (4.0-11.0) Red Blood Count 4.38 MIL/MM3 (4.50-5.90) Hemoglobin 13.4 GM/DL (13.0-17.0) Hematocrit 40.6 % (39.0-51.0) Mean Corpuscular Volume 92.6 FL (80.0-100.0) Mean Corpuscular Hemoglobin 30.7 PG (27.0-34.0) Mean Corpuscular Hemoglobin Concent 33.1 % (32.0-36.0) Red Cell Distribution Width 13.2 % (11.6-17.2) Platelet Count 200 TH/MM3 (150-450) Mean Platelet Volume 8.4 FL (7.0-11.0) Neutrophils (%) (Auto) 78.7 % (16.0-70.0) Lymphocytes (%) (Auto) 10.0 % (9.0-44.0) Monocytes (%) (Auto) 9.3 % (0.0-8.0) Eosinophils (%) (Auto) 1.6 % (0.0-4.0) Basophils (%) (Auto) 0.4 % (0.0-2.0) Neutrophils # (Auto) 9.6 TH/MM3 (1.8-7.7) Lymphocytes # (Auto) 1.2 TH/MM3 (1.0-4.8) Monocytes # (Auto) 1.1 TH/MM3 (0-0.9) Eosinophils # (Auto) 0.2 TH/MM3 (0-0.4) Basophils # (Auto) 0.0 TH/MM3 (0-0.2) CBC Comment DIFF FINAL Differential Comment Blood Urea Nitrogen 11 MG/DL (7-18) Creatinine 1.00 MG/DL (0.60-1.30) Random Glucose 104 MG/DL (74-106) Calcium Level 8.6 MG/DL (8.5-10.1) Sodium Level 137 MEQ/L (136-145) Potassium Level 4.1 MEQ/L (3.5-5.1) Chloride Level 103 MEQ/L (98-107) Carbon Dioxide Level 27.8 MEQ/L (21.0-32.0) Anion Gap 6 MEQ/L (5-15) Estimat Glomerular Filtration Rate 74 ML/MIN (>89) Result Diagram: 10/09/17 0500 10/09/17 0500 Stacie Louis MD Oct 09, 2017 14:17
[2017-10-09] MEDS ORDERED: PILL SPLITTER OTHER PRN (17:45)
--- NOTE | 2017-10-09 17:45 | MB ---
cc: Delmar Seth MD DATE: 10/09/2017 REASON FOR CONSULTATION: Evaluation of V-tach. HISTORY OF PRESENT ILLNESS: Sylvester Salas is a 71-year-old man who had a 23-beat run of ventricular tachycardia at 10:30 this morning. The patient was admitted with appendicitis and underwent appendectomy last night. The patient is lying in bed. He is in discomfort. The run of ventricular tachycardia occurred at 10:30 this morning. It is monomorphic with a rate of about 120. The patient has multiple risk factors for coronary artery disease. He is morbidly obese. He has untreated sleep apnea. He smoked 2 packs a day for 20 years, but quit 30 years ago. His father of a heart attack at age 57. He has hypertension. He says he has borderline diabetes. He has high cholesterol. Denies any anginal history. He had no chest pain yesterday or today and denies ever having had a stress test or a cardiac catheterization in the past. CURRENT MEDICATIONS: Include Lovenox, Flomax, amlodipine, aspirin, Lasix, Prinivil, Pravachol, antibiotics. PAST MEDICAL HISTORY: Includes hypertension, hyperlipidemia, previous seizures, past smoking history, benign prostatic hypertrophy, morbid obesity, sleep apnea but no longer uses CPAP. SOCIAL HISTORY: He has been 52 years. 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 PAST SURGICAL HISTORY: Right rotator cuff repair, appendectomy. ALLERGIES: NONE. REVIEW OF SYSTEMS: Otherwise negative. PHYSICAL EXAMINATION: GENERAL: Morbidly obese white male, lying in bed, appears in moderate discomfort. VITAL SIGNS: Charted. HEENT: Unremarkable. NECK: Negative for JVD or bruits. CHEST: Shows diminished breath sounds. No wheezes or rales. HEART: S1, S2, distant, regular rate and rhythm. No murmurs, gallops. ABDOMEN: Markedly distended, obese, very large umbilical hernia. Bowel sounds are positive. EXTREMITIES: No clubbing, cyanosis or edema. Pulses are intact. LABORATORY AND DIAGNOSTIC DATA: I am waiting for his EKG. I have ordered a stat, but it is still waiting to be done. Of note, I see records of a cardiac catheterization now that I look at his records that was done 05/17/2007. At that time, his LAD had 10-20% mid disease, 40% distal LAD disease and 20-30% apical disease. The diagonal branch had 70% mid disease, but was only 2.5 mm. Ramus had 20-30% disease. Circumflex artery 20-30% disease. Right coronary artery had 20-30% disease. EF was 60%. Labs: Potassium was 4.1 this morning. Troponin less than 0.02. Hematocrit 40.6. Chest x-ray last done 06/23, chronic-appearing interstitial changes. IMPRESSION: A 23-beat run of slow ventricular tachycardia at a rate of 120 this morning. The patient is under extreme stress, high catecholamine state. There is no objective evidence for ischemia at the present time. PLAN: We will repeat troponin in the morning and we will do 2 EKG checks. Check LV function with an echo. I am adding a low-dose beta zoya. Further therapy to be determined. MD ANANYA Zuniga/HUBERT , 05:27 PM , 05:44 PM
[2017-10-09] MEDS ORDERED: TAMSULOSIN HCL 0.4 MG CAP PO SCH (21:00)
[2017-10-09] MEDS: METOPROLOL TARTRATE 25 MG TAB PO SCH (21:43)
[2017-10-09] MEDS: ENOXAPARIN SODIUM 40 MG/0.4 ML SYRINGE SQ SCH (23:00)
[2017-10-10] VITALS (17 sets, daily range): BP systolic 110–149; BP diastolic 56–79; PULSE 72–97; RESP 17–19; TEMP 97.4–98.3; O2SAT 90–95
[2017-10-10] MEDS: RESP: ALBUTEROL 2.5 MG/IPRATROPIUM 0.5 MG NEB (SCH) NEB ×4 (04:53→22:04)
[2017-10-10] MEDS: METOPROLOL TARTRATE 25 MG TAB PO SCH ×3 (07:45→21:58)
[2017-10-10 07:57] LABS: HEMATOCRIT 40.9 % (39.0-51.0); HEMOGLOBIN 13.9 GM/DL (13.0-17.0); MEAN CELL VOLUME 92.4 FL (80.0-100.0); MEAN CORPUSCULAR HEMOGLOBIN 31.3 PG (27.0-34.0); MEAN CORPUSCULAR HGB CONC 33.9 % (32.0-36.0); MEAN PLATELET VOLUME 8.2 FL (7.0-11.0); PLATELET COUNT 203 TH/MM3 (150-450); RED BLOOD COUNT 4.43 MIL/MM3 (4.50-5.90); RED CELL DISTRIBUTION WIDTH 12.9 % (11.6-17.2); WHITE BLOOD COUNT 11.8 TH/MM3 (4.0-11.0)
--- NOTE | 2017-10-10 08:03 | PD.CARD.PN ---
Subjective Subjective Remarks PT without CV complaints Objective Medications Current Medications Medications (Trade) Dose Ordered Sig/Angi Route Start Time Stop Time Status Last Admin Sodium Chloride 1,000 ml @ 40 mls/hr Q24H IV 10/08/17 18:51 10/09/17 16:13 (NS Flush) 2 ml UNSCH PRN IV FLUSH 10/08/17 19:00 (NS Flush) 2 ml BID IV FLUSH 10/08/17 21:00 10/09/17 21:42 (Tylenol) 650 mg Q4H PRN PO 10/08/17 19:00 (Zofran Inj) 4 mg Q6H PRN IVP 10/08/17 19:00 (Narcan Inj) 0.4 mg UNSCH PRN IV PUSH 10/08/17 19:00 (Callie-Colace) 1 tab BID PO 10/08/17 21:00 10/09/17 21:41 (Milk Of Magnesia Liq) 30 ml Q12H PRN PO 10/08/17 19:00 (Senokot) 17.2 mg Q12H PRN PO 10/08/17 19:00 (Dulcolax Supp) 10 mg DAILY PRN RECTAL 10/08/17 19:00 (Lactulose Liq) 30 ml DAILY PRN PO 10/08/17 19:00 (Duragesic 25 Mcg Patch.72 Hr) 1 patch Q3D T-DERMAL 10/08/17 22:15 10/08/17 23:22 (Percocet 5-325 Mg) 1 tab Q4H PRN PO 10/08/17 22:15 (Lovenox Inj) 40 mg Q24H SQ 10/09/17 23:00 10/09/17 23:00 (Dilaudid Pf Inj) 0.5 mg Q4H PRN IV PUSH 10/08/17 23:30 10/09/17 18:08 (Duoneb Neb) 1 ampule Q6HR NEB NEB 10/09/17 04:00 10/10/17 04:53 (Norvasc) 5 mg DAILY PO 10/09/17 09:00 10/09/17 10:31 (Aspirin Chew) 81 mg DAILY CHEW 10/09/17 09:00 10/09/17 10:32 (Lasix) 20 mg DAILY PO 10/09/17 09:00 10/09/17 10:32 (Flomax) 0.4 mg HS PO 10/09/17 21:00 10/09/17 21:42 (Prinivil) 2.5 mg DAILY PO 10/09/17 09:00 10/09/17 10:31 (Pravachol) 40 mg DAILY PO 10/09/17 09:00 10/09/17 10:32 (Lopressor) 12.5 mg Q8HR PO 10/09/17 22:00 10/09/17 21:43 (Pill Splitter) 1 ea UNSCH PRN OTHER 10/09/17 17:45 Vital Signs / I&O Vital Signs Date Time Temp Pulse Resp B/P (MAP) Pulse Ox O2 Delivery O2 Flow Rate FiO2 10/10/17 04:55 90 21 10/10/17 04:00 98.3 80 18 132/76 (94) 92 10/10/17 00:00 97.8 97 19 149/79 (102) 10/09/17 21:22 90 21 10/09/17 20:00 98.1 92 20 161/76 (104) 92 10/09/17 16:00 98.9 77 18 139/65 (89) 95 10/09/17 12:59 18 10/09/17 12:00 98.8 78 18 136/66 (89) 93 10/09/17 09:20 94 Nasal Cannula 3.00 10/09/17 08:00 98.2 85 18 133/63 (86) 92 I/O 10/09/17 10/09/17 10/09/17 10/10/17 10/10/17 10/10/17 07:00 15:00 23:00 07:00 15:00 23:00 Intake Total 2510 ml 50 ml 1580 ml 520 ml Output Total 775 ml 400 ml 450 ml Balance 1735 ml 50 ml 1180 ml 70 ml Intake Oral 410 ml 580 ml 520 ml IV Total 1100 ml 50 ml 1000 ml Other 1000 ml Output Urine Total 725 ml 400 ml 450 ml Estimated Blood Loss 50 ml # Voids 1 # Bowel Movements 0 Physical Exam GENERAL: Well developed, well nourished. No acute distress. HEENT: Jugular venous pressure is normal. CHEST: Lungs clear to auscultation bilaterally. Unlabored respiratory effort. CARDIAC: Regular rate and rhythm without S3, S4, or murmur. ABDOMEN: - EXTREMITIES: No clubbing, cyanosis, or edema. Laboratory Laboratory Tests Test 10/09/17 13:41 10/10/17 07:00 Troponin I LESS THAN 0.02 NG/ML White Blood Count 11.8 TH/MM3 Red Blood Count 4.43 MIL/MM3 Hemoglobin 13.9 GM/DL Hematocrit 40.9 % Mean Corpuscular Volume 92.4 FL Mean Corpuscular Hemoglobin 31.3 PG Mean Corpuscular Hemoglobin Concent 33.9 % Red Cell Distribution Width 12.9 % Platelet Count 203 TH/MM3 Mean Platelet Volume 8.2 FL Imaging Last 72 hours Impressions Abdomen/Pelvis CT 10/08/17 1525 Signed Impressions: Service Date/Time: Sunday, October 08, 2017 17:52 - CONCLUSION: 1. Acute appendicitis. Small amount of free fluid is seen in this region and the possibility of a perforation is difficult to exclude. 2. Large umbilical hernia containing fat and small bowel. 3. Diverticulosis. 4. Atherosclerosis. Ganga Luong MD Assessment and Plan Assessment and Plan VT- ischemic evaluation discussed and he is not interested in cardiac cath at this time => nuc stress when able --increase BB PAF- on tele overnight -BB - anticoagulate when ok per surgery appendectomy- per surgery Yennifer Carter MD Oct 10, 2017 08:03
--- NOTE | 2017-10-10 08:20 | EKG ---
Date Performed: 10/10/2017 Time Performed: 05:52:40 PTAGE: 71 years EKG: Sinus rhythm Normal ECG PREVIOUS TRACING : 10/09/2017 17.41 Since the previous tracing, no significant change noted DOCTOR: Cecile Wolf Interpretating Date/Time 10/10/2017 08:19:03
[2017-10-10 08:21] LABS: BICARBONATE 27.5 MEQ/L (21.0-32.0); BLOOD UREA NITROGEN 12 MG/DL (7-18); CALCIUM 8.7 MG/DL (8.5-10.1); CHLORIDE 98 MEQ/L (98-107); CREATININE 1.16 MG/DL (0.60-1.30); GLOMERULAR FILTRATION RATE 62 ML/MIN (>89); GLUCOSE,RANDOM 148 MG/DL (74-106); MAGNESIUM 2.1 MG/DL (1.5-2.5); SODIUM (NA) 134 MEQ/L (136-145)
[2017-10-10 08:25] LABS: TROPONIN I LESS THAN 0.02 NG/ML (0.02-0.05)
--- NOTE | 2017-10-10 08:56 | EKG ---
Date Performed: 10/09/2017 Time Performed: 17:41:27 PTAGE: 71 years EKG: Sinus rhythm NORMAL ECG PREVIOUS TRACING : 10/08/2017 20.18 Since the previous tracing, no significant change noted DOCTOR: Cecile Wolf Interpretating Date/Time 10/10/2017 08:56:00
[2017-10-10] MEDS: amLODIPine BESYLATE 5 MG TAB PO SCH (09:17)
[2017-10-10] MEDS: oxyCODONE/ACETAMINOPHEN 5 MG/325 MG TAB PO PRN ×3 (09:17→16:15)
[2017-10-10] MEDS: PRAVASTATIN SOD 40 MG TAB PO SCH (09:17)
[2017-10-10] MEDS: FUROSEMIDE 20 MG TAB PO SCH (09:17)
[2017-10-10] MEDS: ASPIRIN 81 MG CHEW TAB CHEW SCH (09:17)
[2017-10-10] MEDS: DOCUSATE SODIUM 50 MG/SENNA 8.6 MG TAB PO SCH ×2 (09:18→21:58)
[2017-10-10] MEDS: LISINOPRIL 5 MG TAB PO SCH (09:18)
[2017-10-10] MEDS: SODIUM CHLORIDE 0.9% FLUSH 10 ML FLUSH IV FLUSH SCH ×2 (09:18→21:59)
--- NOTE | 2017-10-10 11:51 | HHI.PR ---
Subjective Remarks 71-year-old male with a history of hypertension, hyperlipidemia, CAD, sleep apnea and BPH resented to the ED with complaints of right-sided abdominal pain. Patient states the pain was a constant, 8/10, dull mid right abdominal pain with associated nausea and no radiation when he presented to the ED. Patient was examined in PACU status post appendectomy and currently states his pain is a 5/10 and has decreased with the use of Dilaudid. He currently denies any chest pain, shortness of breath, fevers or chills. 4-1 Patient seen and examined this morning. Status post appendectomy. He reports some abdominal pain from the incision sites as well as mild pain in the abdomen due to the procedure. Reports that overall the pain is improved from admission. Tolerating his pain medications as prescribed. Has an umbilical hernia that is reducible, and he is said that it was not repaired during the appendectomy. Denies any chest pain, shortness of breath, or vomiting. Does admit to feeling mildly nauseous. Denies a bowel movement. 4-2 still has some abdominal pain To have stress test tomorrow October 11 with cardiology Diet per surgery Pain control Increase activity PT and OT A.m. labs Discussed with patient and RN and case management Objective Vitals Vital Signs Date Time Temp Pulse Resp B/P (MAP) Pulse Ox O2 Delivery O2 Flow Rate FiO2 10/10/17 11:39 97.4 78 18 132/72 (92) 92 10/10/17 09:30 83 10/10/17 08:56 92 Nasal Cannula 2.00 10/10/17 08:00 97.5 83 17 110/58 (75) 92 10/10/17 04:55 90 21 10/10/17 04:00 98.3 80 18 132/76 (94) 92 10/10/17 00:00 97.8 97 19 149/79 (102) 10/09/17 21:22 90 21 10/09/17 20:00 98.1 92 20 161/76 (104) 92 10/09/17 16:00 98.9 77 18 139/65 (89) 95 10/09/17 12:59 18 10/09/17 12:00 98.8 78 18 136/66 (89) 93 I/O 10/09/17 10/09/17 10/09/17 10/10/1710/10/18 4/2/18 07:00 15:00 23:00 07:00 15:00 23:00 Intake Total 2510 ml 50 ml 1580 ml 520 ml Output Total 775 ml 400 ml 900 ml Balance 1735 ml 50 ml 1180 ml -380 ml Intake Oral 410 ml 580 ml 520 ml IV Total 1100 ml 50 ml 1000 ml Other 1000 ml Output Urine Total 725 ml 400 ml 900 ml Estimated Blood Loss 50 ml # Voids 1 # Bowel Movements 0 Result Diagram: 10/10/17 0700 10/10/17 0700 Other Results Laboratory Tests Test 10/08/17 16:16 10/08/17 17:15 10/09/17 05:00 10/09/17 13:41 White Blood Count 11.5 TH/MM3 12.3 TH/MM3 Red Blood Count 4.62 MIL/MM3 4.38 MIL/MM3 Hemoglobin 13.9 GM/DL 13.4 GM/DL Hematocrit 41.6 % 40.6 % Mean Corpuscular Volume 89.9 FL 92.6 FL Mean Corpuscular Hemoglobin 30.2 PG 30.7 PG Mean Corpuscular Hemoglobin Concent 33.6 % 33.1 % Red Cell Distribution Width 13.2 % 13.2 % Platelet Count 232 TH/MM3 200 TH/MM3 Mean Platelet Volume 7.7 FL 8.4 FL CBC Comment AUTO DIFF DIFF FINAL Differential Total Cells Counted 100 Neutrophils % (Manual) 84 % Band Neutrophils % 3 % Lymphocytes % 8 % Monocytes % 3 % Eosinophils % 2 % Neutrophils # (Manual) 10.0 TH/MM3 Differential Comment FINAL DIFF MANUAL Platelet Estimate NORMAL Platelet Morphology Comment NORMAL Red Cell Morphology Comment NORMAL Prothrombin Time 10.4 SEC Prothromb Time International Ratio 1.0 RATIO Urine Collection Type CLEAN CATCH Urine Color YELLOW Urine Turbidity SL CLOUDY Urine pH 8.0 Urine Specific [place] 1.015 Urine Protein NEG mg/dL Urine Glucose (UA) NEG mg/dL Urine Ketones NEG mg/dL Urine Occult Blood TRACE Urine Nitrite NEG Urine Bilirubin NEG Urine Urobilinogen 0.2 MG/DL Urine Leukocyte Esterase NEG Urine RBC 0-3 /hpf Urine Squamous Epithelial Cells 0-5 /hpf Urine Amorphous Sediment FEW Microscopic Urinalysis Comment CULT NOT INDICATED Urine Collection Time 1616 Blood Urea Nitrogen 10 MG/DL 11 MG/DL Creatinine 1.00 MG/DL 1.00 MG/DL Random Glucose 115 MG/DL 104 MG/DL Total Protein 7.5 GM/DL Albumin 3.7 GM/DL Calcium Level 9.4 MG/DL 8.6 MG/DL Alkaline Phosphatase 104 U/L Aspartate Amino Transf (AST/SGOT) 19 U/L Alanine Aminotransferase (ALT/SGPT) 21 U/L Total Bilirubin 0.7 MG/DL Sodium Level 135 MEQ/L 137 MEQ/L Potassium Level 3.9 MEQ/L 4.1 MEQ/L Chloride Level 101 MEQ/L 103 MEQ/L Carbon Dioxide Level 28.8 MEQ/L 27.8 MEQ/L Anion Gap 5 MEQ/L 6 MEQ/L Estimat Glomerular Filtration Rate 74 ML/MIN 74 ML/MIN Lactic Acid Level 0.8 mmol/L Lipase 109 U/L Neutrophils (%) (Auto) 78.7 % Lymphocytes (%) (Auto) 10.0 % Monocytes (%) (Auto) 9.3 % Eosinophils (%) (Auto) 1.6 % Basophils (%) (Auto) 0.4 % Neutrophils # (Auto) 9.6 TH/MM3 Lymphocytes # (Auto) 1.2 TH/MM3 Monocytes # (Auto) 1.1 TH/MM3 Eosinophils # (Auto) 0.2 TH/MM3 Basophils # (Auto) 0.0 TH/MM3 Troponin I LESS THAN 0.02 NG/ML Test 10/10/17 07:00 White Blood Count 11.8 TH/MM3 Red Blood Count 4.43 MIL/MM3 Hemoglobin 13.9 GM/DL Hematocrit 40.9 % Mean Corpuscular Volume 92.4 FL Mean Corpuscular Hemoglobin 31.3 PG Mean Corpuscular Hemoglobin Concent 33.9 % Red Cell Distribution Width 12.9 % Platelet Count 203 TH/MM3 Mean Platelet Volume 8.2 FL Blood Urea Nitrogen 12 MG/DL Creatinine 1.16 MG/DL Random Glucose 148 MG/DL Calcium Level 8.7 MG/DL Magnesium Level 2.1 MG/DL Sodium Level 134 MEQ/L Potassium Level 3.5 MEQ/L Chloride Level 98 MEQ/L Carbon Dioxide Level 27.5 MEQ/L Anion Gap 9 MEQ/L Estimat Glomerular Filtration Rate 62 ML/MIN Troponin I LESS THAN 0.02 NG/ML Imaging Last Impressions Abdomen/Pelvis CT 10/08/17 1525 Signed Impressions: Service Date/Time: Sunday, October 08, 2017 17:52 - CONCLUSION: 1. Acute appendicitis. Small amount of free fluid is seen in this region and the possibility of a perforation is difficult to exclude. 2. Large umbilical hernia containing fat and small bowel. 3. Diverticulosis. 4. Atherosclerosis. Ganga Luong MD Objective Remarks GENERAL: Awake alert oriented 3 talkative and cooperative appears to be in some mild to moderate distress SKIN: Warm and dry. HEAD: Atraumatic. Normocephalic. EYES: Pupils equal and round. No scleral icterus. No injection or drainage. Extraocular muscles intact ENT: No nasal bleeding or discharge. Mucous membranes pink and moist. Tongue is midline NECK: Trachea midline. No JVD. Supple CARDIOVASCULAR: Regular rate and rhythm. S1-S2 no S3 or S4 RESPIRATORY: No accessory muscle use. Clear to auscultation. Breath sounds equal bilaterally. GASTROINTESTINAL: Abdomen soft, non-tender, nondistended. Hepatic and splenic margins not palpable. Has dressing in right side of abdomen and midline-large. Reducible ventral/umbilical hernia MUSCULOSKELETAL: Extremities without clubbing, cyanosis, or edema. No obvious deformities. NEUROLOGICAL: Awake and alert. No obvious cranial nerve deficits. Motor grossly within normal limits. 4 out of 5 muscle strength in the arms and legs secondary to pain. Normal speech. PSYCHIATRIC: Appropriate mood and affect; insight and judgment normal. Procedures 10/08/17 Attempted laparoscopic conversion to open appendectomy. DATE OF OPERATION: 10/08/2017 POSTOPERATIVE DIAGNOSIS: Acute gangrenous appendicitis. POSTOPERATIVE DIAGNOSIS: Acute gangrenous appendicitis. PROCEDURE PERFORMED: Attempted laparoscopic conversion to open appendectomy. SURGEON: Stacie Louis MD ANESTHESIA: General. ESTIMATED BLOOD LOSS: 50 mL DESCRIPTION OF PROCEDURE: The patient prepped and draped in usual fashion and first a supraumbilical small incision was made and Kwame cannula placed under direct vision. The incision is made fairly high and paramedial because the patient has a huge umbilical hernia and I was hoping I could get around this thing while doing the repair. However, upon the entry of the abdomen is noted the patient has fairly significant adhesions between the small bowel, anterior abdominal wall, omentum, and surrounding organs including the hernia being in the way, so this approach is abandoned. This converted to open appendectomy. Right lower quadrant incision is made about an inch above McBurney's point, deepened down to external oblique aponeurosis, which was opened in direction of the fibers, retracted laterally and then internal and transversus abdominis muscle are opened by muscle splitting incision. Peritoneum reached. Peritoneum is opened transversely and the abdomen entered. There was some turbid fluid present, which was suctioned off. The cecum is delivered. Appendix and is in the paracecal position, measures about 4 inches in length. It is swollen and distal part where there is a gangrenous purulent area. The appendix was elevated with Jordyn clamp and then mesoappendix is tied off with a 0 Vicryl stick tie and the appendix is amputated with a KENAN stapler. The area irrigated with saline. Meticulous hemostasis obtained with the 2 more 0 Vicryl stitches [id number] and then everything dropped back into the abdomen. The small bowel was run for distal part. No abnormalities are found. Abdomen was irrigated with saline and closed in layers, using #1 Vicryl for peritoneum, #1 Vicryl for internal oblique muscle approximation and #1 Vicryl [id number] for external oblique aponeurosis. Skin was approximated with hal. The supraumbilical incision was closed with 0 Vicryl [id number] and hal. The patient tolerated the procedure well and was taken to recovery room in stable condition. It should be noted the patient will be admitted to medicine. I talked to ____ about it and I will consult. Pain medication orders are placed. Stacie Louis MD Medications and IVs Current Medications Pantoprazole Sodium (Protonix Inj) 40 mg ONCE ONCE IVP Last administered on at 16:31; Start 10/08/17 at 15:30; Stop 10/08/17 at 15:31; Status DC Sodium Chloride (NS Flush) 2 ml UNSCH PRN IV FLUSH FLUSH AFTER USING IV ACCESS ; Start 10/08/17 at 15:30; Stop 10/08/17 at 19:01; Status DC Dicyclomine HCl (Bentyl Inj) 20 mg ONCE ONCE IM Last administered on at 16:31; Start 10/08/17 at 15:30; Stop 10/08/17 at 15:31; Status DC Acetaminophen/ Hydrocodone Bitart ([place] 5-325 Mg) 1 tab ONCE ONCE PO Last administered on 10/08/17at 18:16; Start 10/08/17 at 18:00; Stop 10/08/17 at 18:01 ; Status DC Iohexol (Omnipaque 350 Inj) 75 ml STK-MED ONCE IVCONTRAST Last administered on 10/08/17at 18:00; Start 10/08/17 at 18:00; Stop 10/08/17 at 18:32; Status DC Sodium Chloride 1,000 ml @ 40 mls/hr Q24H IV Last administered on 10/09/17at 16: 13; Start 10/08/17 at 18:51 Sodium Chloride (NS Flush) 2 ml UNSCH PRN IV FLUSH FLUSH AFTER USING IV ACCESS ; Start 10/08/17 at 19:00 Sodium Chloride (NS Flush) 2 ml BID IV FLUSH Last administered on 10/10/17at 09: 18; Start 10/08/17 at 21:00 Acetaminophen (Tylenol) 650 mg Q4H PRN PO TEMP > 100.4; Start 10/08/17 at 19:00 Ondansetron HCl (Zofran Inj) 4 mg Q6H PRN IVP NAUSEA OR VOMITING; Start at 19:00 Naloxone HCl (Narcan Inj) 0.4 mg UNSCH PRN IV PUSH SEE LABEL COMMENTS; Start at 19:00 Senna/Docusate Sodium (Callie-Colace) 1 tab BID PO Last administered on 10/10/17at 09:18; Start 10/08/17 at 21:00 Magnesium Hydroxide (Milk Of Magnesia Liq) 30 ml Q12H PRN PO Mild constipation ; Start 10/08/17 at 19:00 Sennosides (Senokot) 17.2 mg Q12H PRN PO Moderate constipation; Start 10/08/17 at 19:00 Bisacodyl (Dulcolax Supp) 10 mg DAILY PRN RECTAL SEVERE CONSITIPATION; Start at 19:00 Lactulose (Lactulose Liq) 30 ml DAILY PRN PO SEVERE CONSITIPATION; Start at 19:00 Lactated Ringer's 1,000 ml @ 30 mls/hr Q24H PRN IV SEE LABEL COMMENTS Last administered on 10/08/17at 20:30; Start 10/08/17 at 20:15; Stop 10/08/17 at 22:59 ; Status DC Sodium Chloride 500 ml @ 30 mls/hr [id number] PRN IV SEE LABEL COMMENTS; Start at 20:15; Stop 10/08/17 at 22:59; Status DC Metoprolol Tartrate (Lopressor) 25 mg COMPUTER [employer]FORMATION SYSTEMS PROFESSOR PRN PO SEE LABEL COMMENTS; Start 10/08/17 at 20:15; Stop 10/08/17 at 22:59; Status DC Povidone Iodine (Betadine 5% Antisepsis Kit) 1 applic [employer]PUT[employer]FORMATION SYSTEMS PROF[employer]OR PRN EACH NARE SEE LABEL COMMENTS; Start 10/08/17 at 20:15; Stop 10/08/17 at 22:59; Status DC Chlorhexidine Gluconate (Chlorhexidine 2% Cloth) 3 pack [employer]PUTER [employer]FORMATION SYSTEMS PROFESSOR PRN TOPICAL SEE LABEL COMMENTS; Start 10/08/17 at 20:15; Stop 10/08/17 at 22:59; Status DC Piperacillin Sod/ Tazobactam Sod 4.5 gm/Sodium Chloride 100 ml @ 200 mls/hr STAT ONCE IV Last administered on 10/08/17at 21:00; Start 10/08/17 at 21:00; Stop 10/08/17 at 21:29; Status DC Fentanyl (Duragesic 25 Mcg Patch.72 Hr) 1 patch Q3D T-DERMAL Last administered on 10/08/17at 23:22; Start 10/08/17 at 22:15 Oxycodone/ Acetaminophen (Percocet 5-325 Mg) 1 tab Q4H PRN PO 3-5 Last administered on 10/10/17at 09:17; Start 10/08/17 at 22:15 Morphine Sulfate (Morphine Inj) 2 mg Q3H PRN IV PUSH 6-10; Start 10/08/17 at 22 :15; Stop 10/08/17 at 23:19; Status DC Enoxaparin Sodium (Lovenox Inj) 40 mg Q24H SQ ; Start 10/08/17 at 23:00; Stop at 23:11; Status DC Piperacillin Sod/ Tazobactam Sod 50 ml @ 100 mls/hr Q8H IV ; Start 10/08/17 at 22:30; Stop 10/08/17 at 23:12; Status DC Fentanyl Citrate (fentaNYL INJ) 100 mcg STK-MED ONCE .ROUTE ; Start 10/08/17 at 22:26; Stop 10/08/17 at 22:27; Status DC Morphine Sulfate (*morphine INJ PERIprocedure ONLY) 4 mg STK-MED ONCE .ROUTE Last administered on 10/08/17at 22:30; Start 10/08/17 at 22:29; Stop 10/08/17 at 22:30; Status DC Diphenhydramine HCl (Benadryl Inj) 50 mg STK-MED ONCE .ROUTE Last administered on 10/08/17at 22:46; Start 10/08/17 at 22:44; Stop 10/08/17 at 22:45; Status DC Hydromorphone HCl (Dilaudid Pf Inj) 2 mg STK-MED ONCE .ROUTE Last administered on 10/08/17at 22:55; Start 10/08/17 at 22:53; Stop 10/08/17 at 22:54; Status DC Miscellaneous Information ALL NURSING DEPARTME... UNSCH PRN .XX SEE LABEL COMMENTS; Start 10/08/17 at 22:18; Stop 10/09/17 at 22:17; Status DC Enoxaparin Sodium (Lovenox Inj) 40 mg Q24H SQ Last administered on 10/09/17at 23: 00; Start 10/09/17 at 23:00 Piperacillin Sod/ Tazobactam Sod 50 ml @ 100 mls/hr Q8H IV Last administered on 10/09/17at 21:43; Start 10/09/17 at 05:00; Stop 10/09/17 at 21:29; Status DC Hydromorphone HCl (Dilaudid Pf Inj) 2 mg STK-MED ONCE .ROUTE Last administered on 10/08/17at 23:14; Start 10/08/17 at 23:13; Stop 10/08/17 at 23:14; Status DC Hydromorphone HCl (Dilaudid Pf Inj) 0.5 mg Q4H PRN IV PUSH pain >5 Last administered on 10/09/17at 18:08; Start 10/08/17 at 23:30 Albuterol/ Ipratropium (Duoneb Neb) 1 ampule STK-MED ONCE .ROUTE ; Start at 23:57; Stop 10/08/17 at 23:58; Status DC Albuterol/ Ipratropium (Duoneb Neb) 1 ampule ONCE ONCE NEB Last administered on 10/09/17at 00:30; Start 10/09/17 at 00:30; Stop 10/09/17 at 00:31; Status DC Albuterol/ Ipratropium (Duoneb Neb) 1 ampule Q6HR NEB NEB Last administered on 10/10/17at 08:49; Start 10/09/17 at 04:00 Amlodipine Besylate (Norvasc) 5 mg DAILY PO Last administered on 10/10/17at 09:17 ; Start 10/09/17 at 09:00 Aspirin (Aspirin Chew) 81 mg DAILY CHEW Last administered on 10/10/17at 09:17; Start 10/09/17 at 09:00 Furosemide (Lasix) 20 mg DAILY PO Last administered on 10/10/17at 09:17; Start at 09:00 Tamsulosin HCl (Flomax) 0.4 mg HS PO Last administered on 10/09/17at 21:42; Start 10/09/17 at 21:00 Lisinopril (Prinivil) 2.5 mg DAILY PO Last administered on 10/10/17at 09:18; Start 10/09/17 at 09:00 Pravastatin Sodium (Pravachol) 40 mg DAILY PO Last administered on 10/10/17at 09: 17; Start 10/09/17 at 09:00 Metoprolol Tartrate (Lopressor) 12.5 mg Q8HR PO Last administered on 10/10/17at 07:45; Start 10/09/17 at 22:00; Stop 10/10/17 at 08:06; Status DC Miscellaneous (Pill Splitter) 1 ea UNSCH PRN OTHER SEE LABEL COMMENTS; Start at 17:45 Metoprolol Tartrate (Lopressor) 25 mg Q8HR PO ; Start 10/10/17 at 14:00 A/P Problem List: (1) Appendicitis ICD Code: K37 - Unspecified appendicitis Status: Acute (2) HTN (hypertension) ICD Code: I10 - Essential (primary) hypertension (3) Hyperlipidemia ICD Code: E78.5 - Hyperlipidemia, unspecified Assessment and Plan 71-year-old male with a history of hypertension, hyperlipidemia, CAD, sleep apnea and BPH resented to the ED with complaints of right-sided abdominal pain. Status post open appendectomy Gangrenous appendicitis Abdomen/pelvis CT reviewed and shows acute appendicitis, large umbilical hernia containing fat and small bowel, diverticulosis and atherosclerosis. -General surgery was consulted, patient is status post open appendectomy -Pain management with IV Dilaudid and by mouth Percocet Sleep apnea, possible underlining COPD -Incentive spirometer -DuoNeb scheduled -CPAP as needed Hypertension, chronic -Resumed home medications Norvasc 5 mg by mouth daily, lisinopril 2.5 mg by mouth daily, monitor vitals Hyperlipidemia, chronic -Resumed home medications pravastatin 40 mg VTAH- TO HAVE STRESS TEST WITH CARDIO TOMORROW 4-3 DVT prophylaxis: SCDs Discharge Planning Pending cardiac and surgical clearance Problem Qualifiers (1) Appendicitis: Qualified Codes: K35.80 - Unspecified acute appendicitis Ashish Casanova DO Oct 10, 2017 11:51
[2017-10-10] MEDS: SODIUM CHLOR 0.9% 1000 ML INJ 1,000 ML IV SCH (14:12)
--- NOTE | 2017-10-10 14:43 | PD.CAR.PN ---
CVT Progress Note Subjective/Hospital Course: 10/09/17 Doing well Incision clean dry Abdomen soft active BS Needs to be OO.High risk for pneumonia. DC Adams 10/10/2017 Patient is awake and alert Abdomen is soft obese with hypoactive bowel sounds Incisions are clean and dry and dressing is removed and incisions can stay open to air Patient may shower get incisions wet Nothing further to add to care Objective: Vital Signs Date Time Temp Pulse Resp B/P (MAP) Pulse Ox O2 Delivery O2 Flow Rate FiO2 10/10/17 14:35 72 10/10/17 13:00 80 10/10/17 11:39 97.4 78 18 132/72 (92) 92 10/10/17 09:30 83 10/10/17 08:56 92 Nasal Cannula 2.00 10/10/17 08:00 97.5 83 17 110/58 (75) 92 10/10/17 04:55 90 21 10/10/17 04:00 98.3 80 18 132/76 (94) 92 10/10/17 00:00 97.8 97 19 149/79 (102) 10/09/17 21:22 90 21 10/09/17 20:00 98.1 92 20 161/76 (104) 92 10/09/17 16:00 98.9 77 18 139/65 (89) 95 Labs: Laboratory Tests Test 10/10/17 07:00 White Blood Count 11.8 TH/MM3 (4.0-11.0) Red Blood Count 4.43 MIL/MM3 (4.50-5.90) Hemoglobin 13.9 GM/DL (13.0-17.0) Hematocrit 40.9 % (39.0-51.0) Mean Corpuscular Volume 92.4 FL (80.0-100.0) Mean Corpuscular Hemoglobin 31.3 PG (27.0-34.0) Mean Corpuscular Hemoglobin Concent 33.9 % (32.0-36.0) Red Cell Distribution Width 12.9 % (11.6-17.2) Platelet Count 203 TH/MM3 (150-450) Mean Platelet Volume 8.2 FL (7.0-11.0) Blood Urea Nitrogen 12 MG/DL (7-18) Creatinine 1.16 MG/DL (0.60-1.30) Random Glucose 148 MG/DL (74-106) Calcium Level 8.7 MG/DL (8.5-10.1) Magnesium Level 2.1 MG/DL (1.5-2.5) Sodium Level 134 MEQ/L (136-145) Potassium Level 3.5 MEQ/L (3.5-5.1) Chloride Level 98 MEQ/L (98-107) Carbon Dioxide Level 27.5 MEQ/L (21.0-32.0) Anion Gap 9 MEQ/L (5-15) Estimat Glomerular Filtration Rate 62 ML/MIN (>89) Troponin I LESS THAN 0.02 NG/ML Result Diagram: 10/10/17 0700 10/10/17 0700 Stacie Louis MD Oct 10, 2017 14:43
[2017-10-10] MEDS: BETHANECHOL CHL 25 MG TAB PO SCH ×2 (16:10→21:59)
--- NOTE | 2017-10-10 19:14 | ECHRPT ---
Indication: CORONARY ATHEROSCLEROSIS CONCLUSIONS Mildly dilated left ventricle. Mild concentric left ventricular hypertrophy. The left ventricular systolic function is low normal with an estimated ejection fraction of 50%. The left atrial size is mildly dilated. The right atrial size is jjig-mh-[id number] dilated. Mild aortic dilatation at the level of the sinuses of Valsalva. Trace mitral valve regurgitation. BP: 132 / 72 HR: 80 Rhythm: Sinus MEASUREMENTS (Male / Female) Normal Values Technical Quality:Technically difficult study 2D ECHO LV Diastolic Diameter PLAX 5.5 cm 4.2 - 5.9 / 3.9 - 5.3 cm LV Systolic Diameter PLAX 4.9 cm IVS Diastolic Thickness 1.0 cm 0.6 - 1.0 / 0.6 - 0.9 cm LVPW Diastolic Thickness 1.0 cm 0.6 - 1.0 / 0.6 - 0.9 cm LV Relative Wall Thickness 0.4 RV Internal Dim ED PLAX 2.6 cm LVOT Diameter 2.5 cm Aortic Root Diameter 4.4 cm LA Systolic Diameter LX 2.2 cm 3.0 - 4.0 / 2.7 - 3.8 cm DOPPLER AV Peak Velocity 156.0 cm/s AV Peak Gradient 9.7 mmHg AV Mean Gradient 5.0 mmHg AV Velocity Time Integral 28.1 cm LVOT Peak Velocity 125.0 cm/s LVOT Peak Gradient 6.3 mmHg LVOT Velocity Time Integral 23.7 cm AV Area Cont Eq vti 4.1 cm AV Area Cont Eq pk 3.9 cm Mitral E Point Velocity 78.5 cm/s Mitral A Point Velocity 90.8 cm/s Mitral E to A Ratio 0.9 LV E' Lateral Velocity 10.1 cm/s Mitral E to LV E' Lateral Ratio 7.8 LV E' Septal Velocity 6.4 cm/s Mitral E to LV E' Septal Ratio 12.2 TR Peak Velocity 265.0 cm/s TR Peak Gradient 28.1 mmHg Right Atrial Pressure 10.0 mmHg Pulmonary Artery Systolic Pressu 38.1 mmHg Right Ventricular Systolic Press 38.1 mmHg PV Peak Velocity 60.2 cm/s PV Peak Gradient 1.4 mmHg FINDINGS LEFT VENTRICLE Mildly dilated left ventricle. Mild concentric left ventricular hypertrophy. The left ventricular systolic function is low normal with an estimated ejection fraction of 50%. RIGHT VENTRICLE Normal right ventricular size and systolic function. LEFT ATRIUM The left atrial size is mildly dilated. RIGHT ATRIUM The right atrial size is ecvc-ac-sabwklezqm dilated. ATRIAL SEPTUM The interatrial septum not well visualized. AORTA Mild aortic dilatation at the level of the sinuses of Valsalva. MITRAL VALVE Trace mitral valve regurgitation. AORTIC VALVE Trileaflet aortic valve. No aortic valve stenosis or regurgitation. TRICUSPID VALVE Structurally normal tricuspid valve. No tricuspid valve stenosis or regurgitation. PULMONARY VALVE The pulmonary valve is not well visualized. VESSELS The inferior vena cava was not well visualized. PERICARDIUM No pericardial effusion. Cecile Wolf MD, FACC (Electronically Signed) Final Date:10 October 2017 19:13
[2017-10-10] MEDS: SENNOSIDES 8.6 MG TAB PO PRN (21:57)
[2017-10-10] MEDS: TAMSULOSIN HCL 0.4 MG CAP PO SCH (21:57)
[2017-10-10] MEDS: MAGNESIUM HYDROXIDE SUSP 30 ML CUP PO PRN (21:57)
[2017-10-10] MEDS: ENOXAPARIN SODIUM 40 MG/0.4 ML SYRINGE SQ SCH (22:02)
[2017-10-11] VITALS (14 sets, daily range): BP systolic 105–150; BP diastolic 56–72; PULSE 79–103; RESP 18–21; TEMP 97.6–98.4; O2SAT 93–97
[2017-10-11] MEDS: RESP: ALBUTEROL 2.5 MG/IPRATROPIUM 0.5 MG NEB (SCH) NEB ×4 (03:46→21:29)
[2017-10-11] MEDS: oxyCODONE/ACETAMINOPHEN 5 MG/325 MG TAB PO PRN (05:54)
[2017-10-11] MEDS: METOPROLOL TARTRATE 25 MG TAB PO SCH ×3 (05:54→21:58)
[2017-10-11] MEDS: BETHANECHOL CHL 25 MG TAB PO SCH ×3 (05:54→21:58)
[2017-10-11 07:20] LABS: AUTOMATED NEUTROPHIL # 8.3 TH/MM3 (1.8-7.7); BASOPHIL % 0.3 % (0.0-2.0); EOSINOPHIL # 0.2 TH/MM3 (0-0.4); EOSINOPHIL % 1.9 % (0.0-4.0); HEMATOCRIT 42.2 % (39.0-51.0); HEMOGLOBIN 14.3 GM/DL (13.0-17.0); LYMPHOCYTE # 0.9 TH/MM3 (1.0-4.8); MEAN CELL VOLUME 91.2 FL (80.0-100.0); MEAN PLATELET VOLUME 8.2 FL (7.0-11.0); MONO % 9.5 % (0.0-8.0); NEUT % 79.3 % (16.0-70.0); PLATELET COUNT 212 TH/MM3 (150-450); RED BLOOD COUNT 4.62 MIL/MM3 (4.50-5.90); RED CELL DISTRIBUTION WIDTH 12.9 % (11.6-17.2); WHITE BLOOD COUNT 10.5 TH/MM3 (4.0-11.0)
[2017-10-11 07:48] LABS: ALBUMIN 3.3 GM/DL (3.4-5.0); ALT (GPT) 26 U/L (12-78); AST (GOT) 45 U/L (15-37); BICARBONATE 29.2 MEQ/L (21.0-32.0); BLOOD UREA NITROGEN 18 MG/DL (7-18); CHLORIDE 94 MEQ/L (98-107); CREATININE 1.14 MG/DL (0.60-1.30); GLOMERULAR FILTRATION RATE 63 ML/MIN (>89); GLUCOSE,RANDOM 134 MG/DL (74-106); MAGNESIUM 2.3 MG/DL (1.5-2.5); SODIUM (NA) 131 MEQ/L (136-145)
[2017-10-11 07:57] LABS: ALKALINE PHOSPHATASE 87 U/L (45-117); FREE T4 1.69 NG/DL (0.76-1.46); PHOSPHORUS 3.1 MG/DL (2.5-4.9); TOTAL BILIRUBIN ADULT 0.7 MG/DL (0.2-1.0); TOTAL PROTEIN 7.3 GM/DL (6.4-8.2)
--- NOTE | 2017-10-11 08:25 | PD.CARD.PN ---
Subjective Subjective Remarks PT without CV complaints Objective Medications Current Medications Medications (Trade) Dose Ordered Sig/Angi Route Start Time Stop Time Status Last Admin Sodium Chloride 1,000 ml @ 40 mls/hr Q24H IV 10/08/17 18:51 10/09/17 16:13 (NS Flush) 2 ml UNSCH PRN IV FLUSH 10/08/17 19:00 (NS Flush) 2 ml BID IV FLUSH 10/08/17 21:00 10/10/17 21:59 (Tylenol) 650 mg Q4H PRN PO 10/08/17 19:00 (Zofran Inj) 4 mg Q6H PRN IVP 10/08/17 19:00 (Narcan Inj) 0.4 mg UNSCH PRN IV PUSH 10/08/17 19:00 (Callie-Colace) 1 tab BID PO 10/08/17 21:00 10/10/17 21:58 (Milk Of Magnesia Liq) 30 ml Q12H PRN PO 10/08/17 19:00 10/10/17 21:57 (Senokot) 17.2 mg Q12H PRN PO 10/08/17 19:00 10/10/17 21:57 (Dulcolax Supp) 10 mg DAILY PRN RECTAL 10/08/17 19:00 (Lactulose Liq) 30 ml DAILY PRN PO 10/08/17 19:00 (Duragesic 25 Mcg Patch.72 Hr) 1 patch Q3D T-DERMAL 10/08/17 22:15 10/08/17 23:22 (Percocet 5-325 Mg) 1 tab Q4H PRN PO 10/08/17 22:15 10/11/17 05:54 (Lovenox Inj) 40 mg Q24H SQ 10/09/17 23:00 10/10/17 22:02 (Dilaudid Pf Inj) 0.5 mg Q4H PRN IV PUSH 10/08/17 23:30 10/09/17 18:08 (Duoneb Neb) 1 ampule Q6HR NEB NEB 10/09/17 04:00 10/11/17 03:46 (Norvasc) 5 mg DAILY PO 10/09/17 09:00 10/10/17 09:17 (Aspirin Chew) 81 mg DAILY CHEW 10/09/17 09:00 10/10/17 09:17 (Lasix) 20 mg DAILY PO 10/09/17 09:00 10/10/17 09:17 (Prinivil) 2.5 mg DAILY PO 10/09/17 09:00 10/10/17 09:18 (Pravachol) 40 mg DAILY PO 10/09/17 09:00 10/10/17 09:17 (Pill Splitter) 1 ea UNSCH PRN OTHER 10/09/17 17:45 (Lopressor) 25 mg Q8HR PO 10/10/17 14:00 10/11/17 05:54 (Flomax) 0.8 mg HS PO 10/10/17 21:00 10/10/17 21:57 (Urecholine) 25 mg Q8HR PO 10/10/17 15:30 10/11/17 05:54 Vital Signs / I&O Vital Signs Date Time Temp Pulse Resp B/P (MAP) Pulse Ox O2 Delivery O2 Flow Rate FiO2 10/11/17 07:44 98.4 103 21 150/66 (94) 94 10/11/17 04:51 97.7 89 19 141/66 (91) 93 10/11/17 04:00 81 10/11/17 03:48 94 Nasal Cannula 3.00 10/11/17 00:10 80 10/10/17 23:30 98.1 85 18 118/67 (84) 95 10/10/17 22:08 95 Nasal Cannula 3.00 10/10/17 20:10 72 10/10/17 19:37 98.3 81 19 114/56 (75) 94 10/10/17 17:34 81 10/10/17 16:35 79 10/10/17 15:53 97.8 92 17 123/70 (87) 94 10/10/17 15:08 74 10/10/17 14:35 72 10/10/17 13:00 80 10/10/17 11:39 97.4 78 18 132/72 (92) 92 10/10/17 09:30 83 10/10/17 08:56 92 Nasal Cannula 2.00 I/O 10/10/17 10/10/17 10/10/17 10/11/17 10/11/17 10/11/17 07:00 15:00 23:00 07:00 15:00 23:00 Intake Total 520 ml 500 ml 480 ml Output Total 900 ml 0 ml 150 ml Balance -380 ml 500 ml 330 ml Intake Oral 520 ml 500 ml 480 ml Output Urine Total 900 ml 0 ml 150 ml Stool Total 0 ml Bladder Scan Volume Amount 225 ml # Voids 1 0 3 # Bowel Movements 0 0 Physical Exam GENERAL: Well developed, well nourished. No acute distress. HEENT: Jugular venous pressure is normal. CHEST: Lungs clear to auscultation bilaterally. Unlabored respiratory effort. CARDIAC: Regular rate and rhythm without S3, S4, or murmur. ABDOMEN: - EXTREMITIES: No clubbing, cyanosis, or edema. Laboratory Laboratory Tests Test 10/11/17 06:51 White Blood Count 10.5 TH/MM3 Red Blood Count 4.62 MIL/MM3 Hemoglobin 14.3 GM/DL Hematocrit 42.2 % Mean Corpuscular Volume 91.2 FL Mean Corpuscular Hemoglobin 31.0 PG Mean Corpuscular Hemoglobin Concent 34.0 % Red Cell Distribution Width 12.9 % Platelet Count 212 TH/MM3 Mean Platelet Volume 8.2 FL Neutrophils (%) (Auto) 79.3 % Lymphocytes (%) (Auto) 9.0 % Monocytes (%) (Auto) 9.5 % Eosinophils (%) (Auto) 1.9 % Basophils (%) (Auto) 0.3 % Neutrophils # (Auto) 8.3 TH/MM3 Lymphocytes # (Auto) 0.9 TH/MM3 Monocytes # (Auto) 1.0 TH/MM3 Eosinophils # (Auto) 0.2 TH/MM3 Basophils # (Auto) 0.0 TH/MM3 CBC Comment DIFF FINAL Differential Comment Blood Urea Nitrogen 18 MG/DL Creatinine 1.14 MG/DL Random Glucose 134 MG/DL Total Protein 7.3 GM/DL Albumin 3.3 GM/DL Calcium Level 9.0 MG/DL Phosphorus Level 3.1 MG/DL Magnesium Level 2.3 MG/DL Alkaline Phosphatase 87 U/L Aspartate Amino Transf (AST/SGOT) 45 U/L Alanine Aminotransferase (ALT/SGPT) 26 U/L Total Bilirubin 0.7 MG/DL Sodium Level 131 MEQ/L Potassium Level 3.7 MEQ/L Chloride Level 94 MEQ/L Carbon Dioxide Level 29.2 MEQ/L Anion Gap 8 MEQ/L Estimat Glomerular Filtration Rate 63 ML/MIN Free Thyroxine 1.69 NG/DL Thyroid Stimulating Hormone 3rd Gen 0.560 uIU/ML Assessment and Plan Assessment and Plan VT- ischemic evaluation discussed and he is not interested in cardiac cath at this time => nuc stress 2 day as he has eaten --increase BB PAF- some RVR -BB increase - anticoagulate, with coumadin as he can not afford new agents -start warfarin and pharmacy consult for target INR 2.0-3.0 -ECHO with normal EF HTN- stop amlodipine for room with BB, stop lasix appendectomy- per surgery Yennifer Carter MD Oct 11, 2017 08:25
[2017-10-11] MEDS: SODIUM CHLORIDE 0.9% FLUSH 10 ML FLUSH IV FLUSH SCH ×2 (09:00→20:04)
[2017-10-11] MEDS: ENOXAPARIN SODIUM 60 MG/0.6 ML SYRINGE SQ SCH ×2 (09:15→20:04)
[2017-10-11] MEDS ORDERED: METOPROLOL TARTRATE 25 MG TAB PO ONE (09:15)
[2017-10-11] MEDS: DOCUSATE SODIUM 50 MG/SENNA 8.6 MG TAB PO SCH ×2 (09:15→20:04)
[2017-10-11] MEDS: MAGNESIUM HYDROXIDE SUSP 30 ML CUP PO PRN ×2 (09:16→20:03)
[2017-10-11] MEDS: PRAVASTATIN SOD 40 MG TAB PO SCH (09:16)
[2017-10-11] MEDS: ASPIRIN 81 MG CHEW TAB CHEW SCH (09:16)
[2017-10-11] MEDS: SENNOSIDES 8.6 MG TAB PO PRN (09:16)
[2017-10-11] MEDS: SODIUM CHLOR 0.9% 1000 ML INJ 1,000 ML IV SCH (09:33)
--- NOTE | 2017-10-11 15:01 | PD.CAR.PN ---
CVT Progress Note Subjective/Hospital Course: 10/09/17 Doing well Incision clean dry Abdomen soft active BS Needs to be OO.High risk for pneumonia. DC [place] 10/10/2017 Patient is awake and alert Abdomen is soft obese with hypoactive bowel sounds Incisions are clean and dry and dressing is removed and incisions can stay open to air Patient may shower get incisions wet Nothing further to add to care 10/11/2017 Abdomen soft active bowel sounds Diet tolerated well Reviewed cardiology notes From my point patient can be started on anticoagulants at any time without restrictions Follow-up with me 2 weeks Objective: Vital Signs Date Time Temp Pulse Resp B/P (MAP) Pulse Ox O2 Delivery O2 Flow Rate FiO2 10/11/17 10:41 98.2 89 19 110/65 (80) 93 10/11/17 08:45 93 Nasal Cannula 2.00 10/11/17 08:05 99 10/11/17 07:44 98.4 103 21 150/66 (94) 94 10/11/17 04:51 97.7 89 19 141/66 (91) 93 10/11/17 04:00 81 10/11/17 03:48 94 Nasal Cannula 3.00 10/11/17 00:10 80 10/10/17 23:30 98.1 85 18 118/67 (84) 95 10/10/17 22:08 95 Nasal Cannula 3.00 10/10/17 20:10 72 10/10/17 19:37 98.3 81 19 114/56 (75) 94 10/10/17 17:34 81 10/10/17 16:35 79 10/10/17 15:53 97.8 92 17 123/70 (87) 94 10/10/17 15:08 74 Labs: Laboratory Tests Test 10/11/17 06:51 White Blood Count 10.5 TH/MM3 (4.0-11.0) Red Blood Count 4.62 MIL/MM3 (4.50-5.90) Hemoglobin 14.3 GM/DL (13.0-17.0) Hematocrit 42.2 % (39.0-51.0) Mean Corpuscular Volume 91.2 FL (80.0-100.0) Mean Corpuscular Hemoglobin 31.0 PG (27.0-34.0) Mean Corpuscular Hemoglobin Concent 34.0 % (32.0-36.0) Red Cell Distribution Width 12.9 % (11.6-17.2) Platelet Count 212 TH/MM3 (150-450) Mean Platelet Volume 8.2 FL (7.0-11.0) Neutrophils (%) (Auto) 79.3 % (16.0-70.0) Lymphocytes (%) (Auto) 9.0 % (9.0-44.0) Monocytes (%) (Auto) 9.5 % (0.0-8.0) Eosinophils (%) (Auto) 1.9 % (0.0-4.0) Basophils (%) (Auto) 0.3 % (0.0-2.0) Neutrophils # (Auto) 8.3 TH/MM3 (1.8-7.7) Lymphocytes # (Auto) 0.9 TH/MM3 (1.0-4.8) Monocytes # (Auto) 1.0 TH/MM3 (0-0.9) Eosinophils # (Auto) 0.2 TH/MM3 (0-0.4) Basophils # (Auto) 0.0 TH/MM3 (0-0.2) CBC Comment DIFF FINAL Differential Comment Blood Urea Nitrogen 18 MG/DL (7-18) Creatinine 1.14 MG/DL (0.60-1.30) Random Glucose 134 MG/DL (74-106) Total Protein 7.3 GM/DL (6.4-8.2) Albumin 3.3 GM/DL (3.4-5.0) Calcium Level 9.0 MG/DL (8.5-10.1) Phosphorus Level 3.1 MG/DL (2.5-4.9) Magnesium Level 2.3 MG/DL (1.5-2.5) Alkaline Phosphatase 87 U/L (45-117) Aspartate Amino Transf (AST/SGOT) 45 U/L (15-37) Alanine Aminotransferase (ALT/SGPT) 26 U/L (12-78) Total Bilirubin 0.7 MG/DL (0.2-1.0) Sodium Level 131 MEQ/L (136-145) Potassium Level 3.7 MEQ/L (3.5-5.1) Chloride Level 94 MEQ/L (98-107) Carbon Dioxide Level 29.2 MEQ/L (21.0-32.0) Anion Gap 8 MEQ/L (5-15) Estimat Glomerular Filtration Rate 63 ML/MIN (>89) Free Thyroxine 1.69 NG/DL (0.76-1.46) Thyroid Stimulating Hormone 3rd Gen 0.560 uIU/ML (0.358-3.740) Result Diagram: 10/11/17 0651 10/11/17 0651 Stacie Louis MD Oct 11, 2017 15:01
[2017-10-11] MEDS: WARFARIN SOD 3 MG TAB PO SCH (15:57)
[2017-10-11 17:20] LABS: HEMOGLOBIN A1C 6.1 % (4.3-6.0)
--- NOTE | 2017-10-11 18:21 | HHI.PR ---
Subjective Remarks Denies cp/sob Objective Vitals Vital Signs Date Time Temp Pulse Resp B/P (MAP) Pulse Ox O2 Delivery O2 Flow Rate FiO2 10/11/17 15:54 98.1 88 19 105/64 (78) 93 10/11/17 15:40 93 Nasal Cannula 2.00 10/11/17 10:41 98.2 89 19 110/65 (80) 93 10/11/17 08:45 93 Nasal Cannula 2.00 10/11/17 08:05 99 10/11/17 07:44 98.4 103 21 150/66 (94) 94 10/11/17 04:51 97.7 89 19 141/66 (91) 93 10/11/17 04:00 81 10/11/17 03:48 94 Nasal Cannula 3.00 10/11/17 00:10 80 10/10/17 23:30 98.1 85 18 118/67 (84) 95 10/10/17 22:08 95 Nasal Cannula 3.00 10/10/17 20:10 72 10/10/17 19:37 98.3 81 19 114/56 (75) 94 I/O 10/10/17 10/10/17 10/10/17 10/11/17 10/11/17 10/11/17 07:00 15:00 23:00 07:00 15:00 23:00 Intake Total 520 ml 500 ml 480 ml 240 ml Output Total 900 ml 0 ml 150 ml Balance -380 ml 500 ml 330 ml 240 ml Intake Oral 520 ml 500 ml 480 ml 240 ml Output Urine Total 900 ml 0 ml 150 ml Stool Total 0 ml Bladder Scan Volume Amount 225 ml # Voids 1 0 3 5 # Bowel Movements 0 0 0 Result Diagram: 10/11/17 0651 10/11/17 0651 Objective Remarks AAOx3 nad Clear lungs S1S2 RRR abdomen soft, nt Procedures 10/08/17 Attempted laparoscopic conversion to open appendectomy. DATE OF OPERATION: 10/08/2017 POSTOPERATIVE DIAGNOSIS: Acute gangrenous appendicitis. POSTOPERATIVE DIAGNOSIS: Acute gangrenous appendicitis. PROCEDURE PERFORMED: Attempted laparoscopic conversion to open appendectomy. SURGEON: Stacie Louis MD ANESTHESIA: General. ESTIMATED BLOOD LOSS: 50 mL DESCRIPTION OF PROCEDURE: The patient prepped and draped in usual fashion and first a supraumbilical small incision was made and Kwame cannula placed under direct vision. The incision is made fairly high and paramedial because the patient has a huge umbilical hernia and I was hoping I could get around this thing while doing the repair. However, upon the entry of the abdomen is noted the patient has fairly significant adhesions between the small bowel, anterior abdominal wall, omentum, and surrounding organs including the hernia being in the way, so this approach is abandoned. This converted to open appendectomy. Right lower quadrant incision is made about an inch above McBurney's point, deepened down to external oblique aponeurosis, which was opened in direction of the fibers, retracted laterally and then internal and transversus abdominis muscle are opened by muscle splitting incision. Peritoneum reached. Peritoneum is opened transversely and the abdomen entered. There was some turbid fluid present, which was suctioned off. The cecum is delivered. Appendix and is in the paracecal position, measures about 4 inches in length. It is swollen and distal part where there is a gangrenous purulent area. The appendix was elevated with Houston clamp and then mesoappendix is tied off with a 0 Vicryl stick tie and the appendix is amputated with a KENAN stapler. The area irrigated with saline. Meticulous hemostasis obtained with the 2 more 0 Vicryl stitches [id number] and then everything dropped back into the abdomen. The small bowel was run for distal part. No abnormalities are found. Abdomen was irrigated with saline and closed in layers, using #1 Vicryl for peritoneum, #1 Vicryl for internal oblique muscle approximation and #1 Vicryl [id number] for external oblique aponeurosis. Skin was approximated with hal. The supraumbilical incision was closed with 0 Vicryl [id number] and hal. The patient tolerated the procedure well and was taken to recovery room in stable condition. It should be noted the patient will be admitted to medicine. I talked to ____ about it and I will consult. Pain medication orders are placed. Stacie Louis MD A/P Problem List: (1) Appendicitis ICD Code: K37 - Unspecified appendicitis Status: Acute (2) HTN (hypertension) ICD Code: I10 - Essential (primary) hypertension (3) Hyperlipidemia ICD Code: E78.5 - Hyperlipidemia, unspecified Assessment and Plan 71-year-old male with a history of hypertension, hyperlipidemia, CAD, sleep apnea and BPH resented to the ED with complaints of right-sided abdominal pain. Status post open appendectomy Gangrenous appendicitis Abdomen/pelvis CT reviewed and shows acute appendicitis, large umbilical hernia containing fat and small bowel, diverticulosis and atherosclerosis. -General surgery was consulted, patient is status post open appendectomy -Pain management with IV Dilaudid and by mouth Percocet Sleep apnea, possible underlining COPD -Incentive spirometer -DuoNeb scheduled -CPAP as needed Hypertension, chronic -Continue home medications Norvasc 5 mg by mouth daily, lisinopril 2.5 mg by mouth daily, monitor vitals Hyperlipidemia, chronic -Continue home medications pravastatin 40 mg VTACH- TO HAVE STRESS TEST WITH C[facility]IO TOMORROW 4/4 DVT prophylaxis: SCDs Discharge Planning stress test in am. Problem Qualifiers (1) Appendicitis: Qualified Codes: K35.80 - Unspecified acute appendicitis Mekhi Perez MD Oct 11, 2017 18:21
[2017-10-11] MEDS ORDERED: ALUMINUM/MAGNESIUM/SIMETH 30 ML CUP PO ONE (19:45)
[2017-10-11] MEDS: TAMSULOSIN HCL 0.4 MG CAP PO SCH (20:04)
[2017-10-11] MEDS: CALCIUM CARBONATE 500 MG CHEWABLE TAB CHEW PRN (21:57)
[2017-10-11] MEDS: fentaNYL 25 MCG/HR PATCH T-DERMAL SCH (22:00)
[2017-10-12] VITALS (11 sets, daily range): BP systolic 98–134; BP diastolic 50–75; PULSE 75–101; RESP 18–19; TEMP 97.4–98.5; O2SAT 92–96
[2017-10-12] MEDS: RESP: ALBUTEROL 2.5 MG/IPRATROPIUM 0.5 MG NEB (SCH) NEB ×4 (04:07→21:14)
[2017-10-12 05:47] LABS: PROTHROMBIN TIME - PATIENT 10.6 SEC (9.8-11.6)
[2017-10-12] MEDS: METOPROLOL TARTRATE 25 MG TAB PO SCH (06:06)
[2017-10-12] MEDS: BETHANECHOL CHL 25 MG TAB PO SCH ×2 (06:06→22:22)
[2017-10-12] MEDS: CALCIUM CARBONATE 500 MG CHEWABLE TAB CHEW PRN ×2 (07:21→22:29)
--- NOTE | 2017-10-12 07:23 | PD.CARD.PN ---
Subjective Subjective Remarks PT without CV complaints Objective Medications Current Medications Medications (Trade) Dose Ordered Sig/Angi Route Start Time Stop Time Status Last Admin Sodium Chloride 1,000 ml @ 40 mls/hr Q24H IV 10/08/17 18:51 10/09/17 16:13 (NS Flush) 2 ml UNSCH PRN IV FLUSH 10/08/17 19:00 (NS Flush) 2 ml BID IV FLUSH 10/08/17 21:00 10/11/17 20:04 (Tylenol) 650 mg Q4H PRN PO 10/08/17 19:00 (Zofran Inj) 4 mg Q6H PRN IVP 10/08/17 19:00 (Narcan Inj) 0.4 mg UNSCH PRN IV PUSH 10/08/17 19:00 (Callie-Colace) 1 tab BID PO 10/08/17 21:00 10/11/17 20:04 (Milk Of Magnesia Liq) 30 ml Q12H PRN PO 10/08/17 19:00 10/11/17 20:03 (Senokot) 17.2 mg Q12H PRN PO 10/08/17 19:00 10/11/17 09:16 (Dulcolax Supp) 10 mg DAILY PRN RECTAL 10/08/17 19:00 (Lactulose Liq) 30 ml DAILY PRN PO 10/08/17 19:00 10/11/17 09:16 (Duragesic 25 Mcg Patch.72 Hr) 1 patch Q3D T-DERMAL 10/08/17 22:15 10/11/17 22:00 (Percocet 5-325 Mg) 1 tab Q4H PRN PO 10/08/17 22:15 10/11/17 05:54 (Dilaudid Pf Inj) 0.5 mg Q4H PRN IV PUSH 10/08/17 23:30 10/09/17 18:08 (Duoneb Neb) 1 ampule Q6HR NEB NEB 10/09/17 04:00 10/12/17 04:07 (Aspirin Chew) 81 mg DAILY CHEW 10/09/17 09:00 10/11/17 09:16 (Pravachol) 40 mg DAILY PO 10/09/17 09:00 10/11/17 09:16 (Pill Splitter) 1 ea UNSCH PRN OTHER 10/09/17 17:45 (Flomax) 0.8 mg HS PO 10/10/17 21:00 10/11/17 20:04 (Urecholine) 25 mg Q8HR PO 10/10/17 15:30 10/12/17 06:06 (Lopressor) 50 mg Q8HR PO 10/11/17 14:00 10/12/17 06:06 (Lovenox Inj) 60 mg Q12H SQ 10/11/17 09:00 10/11/17 20:04 Pharmacy Profile Note 0 ml @ 0 mls/hr UNSCH OTHER 10/11/17 10:00 (Coumadin) 3 mg DAILY@16 PO 10/11/17 16:00 10/11/17 15:57 (Tums Chew) 500 mg Q2H PRN CHEW 10/11/17 19:45 10/11/17 21:57 Vital Signs / I&O Vital Signs Date Time Temp Pulse Resp B/P (MAP) Pulse Ox O2 Delivery O2 Flow Rate FiO2 10/12/17 04:40 98.0 80 18 134/75 (94) 96 10/12/17 04:11 93 Nasal Cannula 4.00 10/12/17 04:00 82 10/12/17 00:00 101 10/11/17 23:24 98.1 79 19 105/56 (72) 97 10/11/17 20:00 87 10/11/17 19:41 97.8 80 18 129/56 (80) 95 10/11/17 15:54 98.1 88 19 105/64 (78) 93 10/11/17 15:40 93 Nasal Cannula 2.00 10/11/17 10:41 98.2 89 19 110/65 (80) 93 10/11/17 08:45 93 Nasal Cannula 2.00 10/11/17 08:05 99 10/11/17 07:44 98.4 103 21 150/66 (94) 94 I/O 10/11/17 10/11/17 10/11/17 10/12/17 10/12/17 10/12/17 07:00 15:00 23:00 07:00 15:00 23:00 Intake Total 480 ml 240 ml 640 ml Output Total 150 ml Balance 330 ml 240 ml 640 ml Intake Oral 480 ml 240 ml 640 ml Output Urine Total 150 ml # Voids 3 5 3 # Bowel Movements 0 0 0 Physical Exam GENERAL: Well developed, well nourished. No acute distress. HEENT: Jugular venous pressure is normal. CHEST: Lungs clear to auscultation bilaterally. Unlabored respiratory effort. CARDIAC: Regular rate and rhythm without S3, S4, or murmur. ABDOMEN: - EXTREMITIES: No clubbing, cyanosis, or edema. Laboratory Laboratory Tests Test 10/12/17 04:59 Prothrombin Time 10.6 SEC Prothromb Time International Ratio 1.0 RATIO Assessment and Plan Assessment and Plan VT- 10/09 23 beats, 10/12 01:00 several beats, pt reports ERICKSON has CPAP at home - ischemic evaluation discussed and he is not interested in cardiac cath at this time => nuc stress 2 day , stress portion today PAF- well controlled on BB - anticoagulate, with coumadin as he can not afford new agents - warfarin per pharmacy for target INR 2.0-3.0: out patient with PCP HTN- appendectomy- per surgery ERICKSON- Ok for d/c if nuc is not ischemic Yennifer Carter MD Oct 12, 2017 07:23
[2017-10-12] MEDS ORDERED: METOPROLOL TARTRATE 25 MG TAB PO ONE (08:00)
[2017-10-12] MEDS: SODIUM CHLORIDE 0.9% FLUSH 10 ML FLUSH IV FLUSH SCH ×2 (09:00→22:22)
[2017-10-12] MEDS: ENOXAPARIN SODIUM 60 MG/0.6 ML SYRINGE SQ SCH ×2 (09:00→22:22)
[2017-10-12] MEDS ORDERED: REGADENOSON INJ 0.4 MG/5 ML SYR ONE (09:25)
--- NOTE | 2017-10-12 11:30 | RADRPT ---
EXAM DATE/TIME: 10/11/2017 13:01 [facility] COMPARISON: No previous studies available for comparison. INDICATIONS : Mid chest pressure. Atrial fibrillation. Coronary artery disease. DOSE: 30.2 mCi Tc99m Myoview at stress. 30.0 mCi Tc99m Myoview at rest. 0.4 mg Lexiscan STRESS SYMPTOMS: Shortness of breath. EJECTION FRACTION: 65% MEDICAL HISTORY : Hypertension. SURGICAL HISTORY : None. ENCOUNTER: Initial ACUITY: 1 day PAIN SCALE: 3/10 LOCATION: Bilateral chest TECHNIQUE: The patient underwent pharmacologic stress with infusion of prescribed dose. Continuous ECG tracing was monitored during stress. Gated SPECT imaging was performed after stress and conventional SPECT i maging was performed at rest. The examination was performed on a SPECT/CT scanner, both attenuation and non-corrected datasets were reviewed. FINDINGS: DISTRIBUTION: The maximum perfused segment at stress is in the anterobasal wall. PERFUSION STUDY: There is minimal decreased uptake in the ventricular septum inferior to the valve plane, approximatel y 30% or less within the best perfused wall. There is evidence of redistribution in this segment of the resting injection scan. The summed stress score is 4, which makes this an equivocal abnormality. No other perfusion defects seen. GATED STUDY: There is intact wall motion and thickening without hypokinetic or dyskinetic segments. CONCLUSION: 1. Small size, mild severity reversible perfusion defect involving the basal septum, only the interme diate probability for stress-induced ischemia. 2. Intact wall motion with a normal 65% ejection fraction. RISK CATEGORY: Intermediate (1-3% Annual Mortality Rate) Kahlil Joseph MD on October 12, 2017 at 11:25 Board Certified Radiologist. This report was verified electronically.
[2017-10-12] MEDS ORDERED: GETGO ROLLING W1 MI1 (12:17)
--- NOTE | 2017-10-12 14:19 | PD.CAR.PN ---
CVT Progress Note Subjective/Hospital Course: 10/09/17 Doing well Incision clean dry Abdomen soft active BS Needs to be OO.High risk for pneumonia. NITA [place] 10/10/2017 Patient is awake and alert Abdomen is soft obese with hypoactive bowel sounds Incisions are clean and dry and dressing is removed and incisions can stay open to air Patient may shower get incisions wet Nothing further to add to care 10/11/2017 Abdomen soft active bowel sounds Diet tolerated well Reviewed cardiology notes From my point patient can be started on anticoagulants at any time without restrictions Follow-up with me 2 weeks 10/12/2017 Abdomen is soft active bowel sounds Trocar site in the epigastrium is clean and dry Appendectomy incision the right lower quadrant is clean and dry without drainage Patient can shower and get all these wet Nothing to add from my point Objective: Vital Signs Date Time Temp Pulse Resp B/P (MAP) Pulse Ox O2 Delivery O2 Flow Rate FiO2 10/12/17 11:53 98.3 88 19 98/50 (66) 93 10/12/17 08:58 93 Nasal Cannula 4.00 10/12/17 07:59 97.4 88 19 125/73 (90) 95 10/12/17 04:40 98.0 80 18 134/75 (94) 96 10/12/17 04:11 93 Nasal Cannula 4.00 10/12/17 04:00 82 10/12/17 00:00 101 10/11/17 23:24 98.1 79 19 105/56 (72) 97 10/11/17 20:00 87 10/11/17 19:41 97.8 80 18 129/56 (80) 95 10/11/17 15:54 98.1 88 19 105/64 (78) 93 10/11/17 15:40 93 Nasal Cannula 2.00 Labs: Laboratory Tests Test 10/12/17 04:59 Prothrombin Time 10.6 SEC (9.8-11.6) Prothromb Time International Ratio 1.0 RATIO Result Diagram: 10/11/17 0651 10/11/17 0651 Stacie Louis MD Oct 12, 2017 14:19
[2017-10-12] MEDS: SODIUM CHLOR 0.9% 1000 ML INJ 1,000 ML IV SCH (15:39)
[2017-10-12] MEDS ORDERED: WARFARIN SOD 2 MG TAB PO ONE (16:00)
[2017-10-12] MEDS: WARFARIN SOD 3 MG TAB PO SCH (17:21)
[2017-10-12] MEDS: DOCUSATE SODIUM 50 MG/SENNA 8.6 MG TAB PO SCH ×2 (17:25→22:22)
[2017-10-12] MEDS: ASPIRIN 81 MG CHEW TAB CHEW SCH (17:25)
[2017-10-12] MEDS: PRAVASTATIN SOD 40 MG TAB PO SCH (17:26)
--- NOTE | 2017-10-12 18:19 | HHI.PR ---
Subjective Remarks Denies cp/sob. Objective Vitals Vital Signs Date Time Temp Pulse Resp B/P (MAP) Pulse Ox O2 Delivery O2 Flow Rate FiO2 10/12/17 16:21 92 Nasal Cannula 4.00 10/12/17 15:55 98.5 89 19 128/65 (86) 93 10/12/17 11:53 98.3 88 19 98/50 (66) 93 10/12/17 08:58 93 Nasal Cannula 4.00 10/12/17 07:59 97.4 88 19 125/73 (90) 95 10/12/17 04:40 98.0 80 18 134/75 (94) 96 10/12/17 04:11 93 Nasal Cannula 4.00 10/12/17 04:00 82 10/12/17 00:00 101 10/11/17 23:24 98.1 79 19 105/56 (72) 97 10/11/17 20:00 87 10/11/17 19:41 97.8 80 18 129/56 (80) 95 I/O 10/11/17 10/11/17 10/11/17 10/12/17 10/12/17 10/12/17 07:00 15:00 23:00 07:00 15:00 23:00 Intake Total 480 ml 240 ml 1060 ml Output Total 150 ml Balance 330 ml 240 ml 1060 ml Intake Oral 480 ml 240 ml 1060 ml Output Urine Total 150 ml # Voids 3 5 8 # Bowel Movements 0 0 0 Result Diagram: 10/11/17 0651 10/11/17 0651 Imaging Last Impressions Myocardial Perfusion Scan Nuc Med 10/11/17 0000 Signed Impressions: Service Date/Time: Wednesday, October 11, 2017 13:01 - CONCLUSION: 1. Small size, mild severity reversible perfusion defect involving the basal septum, only the intermediate probability for stress-induced ischemia. 2. Intact wall motion with a normal 65%% ejection fraction. RISK CATEGORY: Intermediate (1-3%% Annual Mortality Rate) Kahlil Joseph MD Abdomen/Pelvis CT 10/08/17 1525 Signed Impressions: Service Date/Time: Sunday, October 08, 2017 17:52 - CONCLUSION: 1. Acute appendicitis. Small amount of free fluid is seen in this region and the possibility of a perforation is difficult to exclude. 2. Large umbilical hernia containing fat and small bowel. 3. Diverticulosis. 4. Atherosclerosis. Ganga Luong MD Objective Remarks AAOx3 nad Clear lungs S1S2 RRR abdomen soft, nt Procedures 10/08/17 Attempted laparoscopic conversion to open appendectomy. DATE OF OPERATION: 10/08/2017 POSTOPERATIVE DIAGNOSIS: Acute gangrenous appendicitis. POSTOPERATIVE DIAGNOSIS: Acute gangrenous appendicitis. PROCEDURE PERFORMED: Attempted laparoscopic conversion to open appendectomy. SURGEON: Stacie Louis MD ANESTHESIA: General. ESTIMATED BLOOD LOSS: 50 mL DESCRIPTION OF PROCEDURE: The patient prepped and draped in usual fashion and first a supraumbilical small incision was made and Kwame cannula placed under direct vision. The incision is made fairly high and paramedial because the patient has a huge umbilical hernia and I was hoping I could get around this thing while doing the repair. However, upon the entry of the abdomen is noted the patient has fairly significant adhesions between the small bowel, anterior abdominal wall, omentum, and surrounding organs including the hernia being in the way, so this approach is abandoned. This converted to open appendectomy. Right lower quadrant incision is made about an inch above McBurney's point, deepened down to external oblique aponeurosis, which was opened in direction of the fibers, retracted laterally and then internal and transversus abdominis muscle are opened by muscle splitting incision. Peritoneum reached. Peritoneum is opened transversely and the abdomen entered. There was some turbid fluid present, which was suctioned off. The cecum is delivered. Appendix and is in the paracecal position, measures about 4 inches in length. It is swollen and distal part where there is a gangrenous purulent area. The appendix was elevated with [place] clamp and then mesoappendix is tied off with a 0 Vicryl stick tie and the appendix is amputated with a KENAN stapler. The area irrigated with saline. Meticulous hemostasis obtained with the 2 more 0 Vicryl stitches [id number] and then everything dropped back into the abdomen. The small bowel was run for distal part. No abnormalities are found. Abdomen was irrigated with saline and closed in layers, using #1 Vicryl for peritoneum, #1 Vicryl for internal oblique muscle approximation and #1 Vicryl [id number] for external oblique aponeurosis. Skin was approximated with hal. The supraumbilical incision was closed with 0 Vicryl [id number] and hal. The patient tolerated the procedure well and was taken to recovery room in stable condition. It should be noted the patient will be admitted to medicine. I talked to ____ about it and I will consult. Pain medication orders are placed. Stacie Louis MD A/P Problem List: (1) Appendicitis ICD Code: K37 - Unspecified appendicitis Status: Acute (2) HTN (hypertension) ICD Code: I10 - Essential (primary) hypertension (3) Hyperlipidemia ICD Code: E78.5 - Hyperlipidemia, unspecified Assessment and Plan 71-year-old male with a history of hypertension, hyperlipidemia, CAD, sleep apnea and BPH resented to the ED with complaints of right-sided abdominal pain. Status post open appendectomy Gangrenous appendicitis Abdomen/pelvis CT reviewed and shows acute appendicitis, large umbilical hernia containing fat and small bowel, diverticulosis and atherosclerosis. -General surgery was consulted, patient is status post open appendectomy -Pain management with IV Dilaudid and by mouth Percocet Sleep apnea, possible underlining COPD -Incentive spirometer -DuoNeb scheduled -CPAP as needed Hypertension, chronic -Continue home medications Norvasc 5 mg by mouth daily, lisinopril 2.5 mg by mouth daily, monitor vitals Hyperlipidemia, chronic -Continue home medications pravastatin 40 mg VTACH- Nuclear stress test shows a small size mild severity reversible perfusion defect. Fu cardiology recommendations. DVT prophylaxis: SCDs Discharge Planning Pending Cardio clearance Problem Qualifiers (1) Appendicitis: Qualified Codes: K35.80 - Unspecified acute appendicitis Mekhi Perez MD Oct 12, 2017 18:19
[2017-10-12] MEDS: TAMSULOSIN HCL 0.4 MG CAP PO SCH (22:23)
[2017-10-12] MEDS: METOPROLOL TARTRATE 50 MG TAB PO SCH (22:23)
[2017-10-13] VITALS: PULSE 98
[2017-10-13] MEDS: RESP: ALBUTEROL 2.5 MG/IPRATROPIUM 0.5 MG NEB (SCH) NEB (03:22)
[2017-10-13 04:30] VITALS: BP 130/56; PULSE 87; RESP 19; TEMP 98.2; O2SAT 93
[2017-10-13] MEDS: BETHANECHOL CHL 25 MG TAB PO SCH ×2 (05:50→15:40)
[2017-10-13 08:00] VITALS: BP 120/55; PULSE 83; RESP 22; TEMP 98; O2SAT 93
--- NOTE | 2017-10-13 08:46 | PD.CARD.PN ---
Subjective Subjective Remarks No CP, dizziness, syncope, dyspnea. Fleeting palpitations yesterday. Objective Medications Item Value Date Time Metoprolol 75 mg 10/12/17 2100 Tartrate Q12HR/PO 10/12/17 2223 (Lopressor) Warfarin Sodium 3 mg 10/11/17 1600 (Coumadin) DAILY@16/PO 10/12/17 1721 Enoxaparin Sodium 60 mg 10/11/17 0900 (Lovenox Inj) Q12H/SQ 10/12/17 2222 Aspirin 81 mg 10/09/17 0900 (Aspirin Chew) DAILY/CHEW 10/12/17 1725 Pravastatin Sodium 40 mg 10/09/17 0900 (Pravachol) DAILY/PO 10/12/17 1726 Current Medications Medications (Trade) Dose Ordered Sig/Angi Route Start Time Stop Time Status Last Admin Sodium Chloride 1,000 ml @ 40 mls/hr Q24H IV 10/08/17 18:51 10/09/17 16:13 (NS Flush) 2 ml UNSCH PRN IV FLUSH 10/08/17 19:00 (NS Flush) 2 ml BID IV FLUSH 10/08/17 21:00 10/12/17 22:22 (Tylenol) 650 mg Q4H PRN PO 10/08/17 19:00 (Zofran Inj) 4 mg Q6H PRN IVP 10/08/17 19:00 (Narcan Inj) 0.4 mg UNSCH PRN IV PUSH 10/08/17 19:00 (Callie-Colace) 1 tab BID PO 10/08/17 21:00 10/12/17 22:22 (Milk Of Magnesia Liq) 30 ml Q12H PRN PO 10/08/17 19:00 10/11/17 20:03 (Senokot) 17.2 mg Q12H PRN PO 10/08/17 19:00 10/11/17 09:16 (Dulcolax Supp) 10 mg DAILY PRN RECTAL 10/08/17 19:00 10/13/17 06:25 (Lactulose Liq) 30 ml DAILY PRN PO 10/08/17 19:00 10/11/17 09:16 (Duragesic 25 Mcg Patch.72 Hr) 1 patch Q3D T-DERMAL 10/08/17 22:15 10/11/17 22:00 (Percocet 5-325 Mg) 1 tab Q4H PRN PO 10/08/17 22:15 10/11/17 05:54 (Dilaudid Pf Inj) 0.5 mg Q4H PRN IV PUSH 10/08/17 23:30 10/09/17 18:08 (Aspirin Chew) 81 mg DAILY CHEW 10/09/17 09:00 10/12/17 17:25 (Pravachol) 40 mg DAILY PO 10/09/17 09:00 10/12/17 17:26 (Pill Splitter) 1 ea UNSCH PRN OTHER 10/09/17 17:45 (Flomax) 0.8 mg HS PO 10/10/17 21:00 10/12/17 22:23 (Urecholine) 25 mg Q8HR PO 10/10/17 15:30 10/13/17 05:50 (Lovenox Inj) 60 mg Q12H SQ 10/11/17 09:00 10/12/17 22:22 Pharmacy Profile Note 0 ml @ 0 mls/hr UNSCH OTHER 10/11/17 10:00 (Coumadin) 3 mg DAILY@16 PO 10/11/17 16:00 10/12/17 17:21 (Tums Chew) 500 mg Q2H PRN CHEW 10/11/17 19:45 10/12/17 22:29 (Lopressor) 75 mg Q12HR PO 10/12/17 21:00 10/12/17 22:23 Vital Signs / I&O Vital Signs Date Time Temp Pulse Resp B/P (MAP) Pulse Ox O2 Delivery O2 Flow Rate FiO2 10/13/17 04:30 98.2 87 19 130/56 (80) 93 10/13/17 00:00 98 10/12/17 23:03 97.6 75 18 121/65 (83) 94 10/12/17 20:00 78 10/12/17 20:00 97.8 79 19 125/69 (87) 94 10/12/17 16:21 92 Nasal Cannula 4.00 10/12/17 15:55 98.5 89 19 128/65 (86) 93 10/12/17 11:53 98.3 88 19 98/50 (66) 93 10/12/17 08:58 93 Nasal Cannula 4.00 I/O 10/12/17 10/12/17 10/12/17 10/13/17 10/13/17 10/13/17 07:00 15:00 23:00 07:00 15:00 23:00 Intake Total 1060 ml Balance 1060 ml Intake Oral 1060 ml # Voids 8 2 # Bowel Movements 0 0 Physical Exam GENERAL: Well developed, well nourished. No acute distress. HEENT: Jugular venous pressure is normal. CHEST: Lungs clear to auscultation anteriorly. CARDIAC: Regular rate and rhythm without S3, S4, or murmur. ABDOMEN: Soft, nontender, no hepatosplenomegaly. Bowel sounds present. EXTREMITIES: No clubbing, cyanosis, or edema. Imaging Last 72 hours Impressions Myocardial Perfusion Scan Nuc Med 10/11/17 0000 Signed Impressions: Service Date/Time: Wednesday, October 11, 2017 13:01 - CONCLUSION: 1. Small size, mild severity reversible perfusion defect involving the basal septum, only the intermediate probability for stress-induced ischemia. 2. Intact wall motion with a normal 65%% ejection fraction. RISK CATEGORY: Intermediate (1-3%% Annual Mortality Rate) Kahlil Joseph MD Assessment and Plan Problem List: (1) Wide QRS ventricular tachycardia ICD Codes: I47.2 - Ventricular tachycardia Status: Acute Plan: Monitoring stable overnight. No further wide complex tachycardia. EF low normal, 50%, by echo. Nuclear stress test images suggest basal septal ischemia, which is an unusual isolated finding. REC continued medical therapy, continue metoprolol, aspirin OK to discharge from cardiac standpoint (2) Paroxysmal atrial fibrillation ICD Codes: I48.0 - Paroxysmal atrial fibrillation Status: Chronic Plan: Stable monitoring. Possible brief monster of atrial fib 10/09, none since. Continue beta zoya. Continue warfarin. (3) HTN (hypertension) ICD Codes: I10 - Essential (primary) hypertension Status: Chronic Plan: Fluctuating BP's. Continue to monitor. Code Status full code Discussed Condition With patient Problem Qualifiers (1) HTN (hypertension): Qualified Codes: I10 - Essential (primary) hypertension Guillermo Ruvalcaba MD Oct 13, 2017 08:45
[2017-10-13] MEDS: PRAVASTATIN SOD 40 MG TAB PO SCH (09:23)
[2017-10-13] MEDS: ENOXAPARIN SODIUM 60 MG/0.6 ML SYRINGE SQ SCH (09:23)
[2017-10-13] MEDS: DOCUSATE SODIUM 50 MG/SENNA 8.6 MG TAB PO SCH (09:23)
[2017-10-13] MEDS: ASPIRIN 81 MG CHEW TAB CHEW SCH (09:23)
[2017-10-13] MEDS: METOPROLOL TARTRATE 50 MG TAB PO SCH (09:23)
[2017-10-13] MEDS: SODIUM CHLORIDE 0.9% FLUSH 10 ML FLUSH IV FLUSH SCH (09:24)
[2017-10-13 10:15] VITALS: PULSE 74
[2017-10-13 12:00] VITALS: BP 115/63; PULSE 69; RESP 22; TEMP 97.7; O2SAT 92
[2017-10-13] MEDS ORDERED: METO-309 PO (12:11)
--- NOTE | 2017-10-13 12:12 | HHI.DCPOC ---
Discharge Care Plan Diagnosis: (1) Hyperlipidemia (2) Gait instability (3) Appendicitis (4) Paroxysmal atrial fibrillation (5) HTN (hypertension) (6) Wide QRS ventricular tachycardia Goals to Promote Your Health * To prevent worsening of your condition and complications * To maintain your health at the optimal level Directions to Meet Your Goals Take your medications as prescribed Follow your dietary instruction Follow activity as directed Keep your appointments as scheduled Take your immunizations and boosters as scheduled If your symptoms worsen call your PCP, if no PCP go to Urgent Care Center or Emergency Room Smoking is Dangerous to Your Health. Avoid second hand smoke Call the 24-hour hour crisis hotline for domestic abuse at Mekhi Perez MD Oct 13, 2017 12:12
--- NOTE | 2017-10-13 12:15 | HHI.FF ---
Face to Face Verification Diagnosis: (1) Appendicitis (2) Wide QRS ventricular tachycardia (3) HTN (hypertension) (4) Gait instability (5) Hyperlipidemia Physical Therapy Order: Improve ambulation, Strength and gait training Home Health Nursing Order: Wound care and dressing changes Nursing assessment with vital signs I have seen patient Sylvester Salas on 10/13/17. My clinical findings support the need for the requested home health care services because: Need for psychosocial assistance Infection w/ risk of complications I certify that my clinical findings support that this patient is homebound because: Post-op weakness Unsteady gait/balance Unable to use public transportation Mekhi Perez MD Oct 13, 2017 12:15
[2017-10-13] MEDS ORDERED: ENOX60P SQ (12:24)
[2017-10-13] MEDS ORDERED: COUM3TAB PO (12:24)
--- NOTE | 2017-10-13 12:26 | HHI.DS ---
Discharge Summary Admission Date Oct 08, 2017 at 18:49 Discharge Date: Oct 13, 2017 Admitting Diagnosis Appendicitis (1) Appendicitis ICD Code: K37 - Unspecified appendicitis Status: Acute (2) HTN (hypertension) ICD Code: I10 - Essential (primary) hypertension Status: Chronic (3) Hyperlipidemia ICD Code: E78.5 - Hyperlipidemia, unspecified (4) Gait instability ICD Code: R26.81 - Unsteadiness on feet (5) Paroxysmal atrial fibrillation ICD Code: I48.0 - Paroxysmal atrial fibrillation Status: Chronic (6) Wide QRS ventricular tachycardia ICD Code: I47.2 - Ventricular tachycardia Status: Acute Procedures 10/08/17 Attempted laparoscopic conversion to open appendectomy. DATE OF OPERATION: 10/08/2017 POSTOPERATIVE DIAGNOSIS: Acute gangrenous appendicitis. POSTOPERATIVE DIAGNOSIS: Acute gangrenous appendicitis. PROCEDURE PERFORMED: Attempted laparoscopic conversion to open appendectomy. SURGEON: Stacie Louis MD ANESTHESIA: General. ESTIMATED BLOOD LOSS: 50 mL DESCRIPTION OF PROCEDURE: The patient prepped and draped in usual fashion and first a supraumbilical small incision was made and Kwame cannula placed under direct vision. The incision is made fairly high and paramedial because the patient has a huge umbilical hernia and I was hoping I could get around this thing while doing the repair. However, upon the entry of the abdomen is noted the patient has fairly significant adhesions between the small bowel, anterior abdominal wall, omentum, and surrounding organs including the hernia being in the way, so this approach is abandoned. This converted to open appendectomy. Right lower quadrant incision is made about an inch above McBurney's point, deepened down to external oblique aponeurosis, which was opened in direction of the fibers, retracted laterally and then internal and transversus abdominis muscle are opened by muscle splitting incision. Peritoneum reached. Peritoneum is opened transversely and the abdomen entered. There was some turbid fluid present, which was suctioned off. The cecum is delivered. Appendix and is in the paracecal position, measures about 4 inches in length. It is swollen and distal part where there is a gangrenous purulent area. The appendix was elevated with [place] clamp and then mesoappendix is tied off with a 0 Vicryl stick tie and the appendix is amputated with a KENAN stapler. The area irrigated with saline. Meticulous hemostasis obtained with the 2 more 0 Vicryl stitches [id number]-du-[id number] and then everything dropped back into the abdomen. The small bowel was run for distal part. No abnormalities are found. Abdomen was irrigated with saline and closed in layers, using #1 Vicryl for peritoneum, #1 Vicryl for internal oblique muscle approximation and #1 Vicryl [id number] for external oblique aponeurosis. Skin was approximated with hal. The supraumbilical incision was closed with 0 Vicryl zooyry-vg-[id number] and hal. The patient tolerated the procedure well and was taken to recovery room in stable condition. It should be noted the patient will be admitted to medicine. I talked to ____ about it and I will consult. Pain medication orders are placed. Stacie Louis MD Brief History - From Admission 71-year-old male with a history of hypertension, hyperlipidemia, CAD, sleep apnea and BPH resented to the ED with complaints of right-sided abdominal pain. Patient states the pain was a constant, 8/10, dull mid right abdominal pain with associated nausea and no radiation when he presented to the ED. Patient was examined in PACU status post appendectomy and currently states his pain is a 5/10 and has decreased with the use of Dilaudid. He currently denies any chest pain, shortness of breath, fevers or chills. CBC/BMP: 10/11/17 0651 10/11/17 0651 Significant Findings Laboratory Tests Test 10/11/17 06:51 10/12/17 04:59 Neutrophils (%) (Auto) 79.3 % (16.0-70.0) Monocytes (%) (Auto) 9.5 % (0.0-8.0) Neutrophils # (Auto) 8.3 TH/MM3 (1.8-7.7) Lymphocytes # (Auto) 0.9 TH/MM3 (1.0-4.8) Monocytes # (Auto) 1.0 TH/MM3 (0-0.9) Random Glucose 134 MG/DL (74-106) Albumin 3.3 GM/DL (3.4-5.0) Aspartate Amino Transf (AST/SGOT) 45 U/L (15-37) Sodium Level 131 MEQ/L (136-145) Chloride Level 94 MEQ/L (98-107) Estimat Glomerular Filtration Rate 63 ML/MIN (>89) Hemoglobin A1c 6.1 % (4.3-6.0) Free Thyroxine 1.69 NG/DL (0.76-1.46) Imaging Last Impressions Myocardial Perfusion Scan Nuc Med 10/11/17 0000 Signed Impressions: Service Date/Time: Wednesday, October 11, 2017 13:01 - CONCLUSION: 1. Small size, mild severity reversible perfusion defect involving the basal septum, only the intermediate probability for stress-induced ischemia. 2. Intact wall motion with a normal 65%% ejection fraction. RISK CATEGORY: Intermediate (1-3%% Annual Mortality Rate) Kahlil Joseph MD Abdomen/Pelvis CT 10/08/17 1525 Signed Impressions: Service Date/Time: Sunday, October 08, 2017 17:52 - CONCLUSION: 1. Acute appendicitis. Small amount of free fluid is seen in this region and the possibility of a perforation is difficult to exclude. 2. Large umbilical hernia containing fat and small bowel. 3. Diverticulosis. 4. Atherosclerosis. Ganga Luong MD PE at Discharge AAOx3 nad Clear lungs S1S2 RRR abdomen soft, nt Pt Condition on Discharge: Stable Discharge Disposition: Disch w/ Home Health Serv Discharge Time: > 30 minutes Discharge Instructions DIET: Follow Instructions for: Heart Healthy Diet Activities you can perform: Regular-No Restrictions Activities to Avoid: Lifting/Bending Follow up Referrals: Cardiology - 2 Weeks PCP Follow-up - 2 Weeks Surgical - 2 Weeks with Stacie Louis MD New Medications: Walker Rolling/GetGo (Walker Rolling/GetGo) 1 Mis Mis EA .XX DIRECTED for gait instability, #1 Enoxaparin Inj (Lovenox Inj) 60 Mg/0.6 Ml Syr 60 MG SQ Q12H for Blood Clot Prevention, #10 SYRINGE Metoprolol Tartrate (Lopressor) 50 Mg Tab 75 MG PO Q12HR for Blood Pressure Management, #62 TAB Warfarin (Coumadin) 3 Mg Tab 3 MG PO DAILY@16 for Blood Clot Prevention, #20 TAB Continued Medications: Amlodipine (Amlodipine) 5 Mg Tab 5 MG PO DAILY for Blood Pressure Management, #30 TAB 0 Refills Aspirin (Aspirin) 81 Mg Chew 81 MG CHEW DAILY, TAB 0 Refills Cholecalciferol (Vitamin D3) 1,000 Unit Tab 1000 UNITS PO DAILY for Nutritional Supplement, #1 BOTTLE 0 Refills Coenzyme Q10 (Ubidecarenone) (Coq10) 50 Mg Cap Furosemide (Furosemide) 20 Mg Tab 20 MG PO DAILY, #30 TAB 0 Refills Lisinopril (Lisinopril) 2.5 Mg Tab 2.5 MG PO DAILY, #30 TAB 0 Refills Simvastatin (Simvastatin) 20 Mg Tab 20 MG PO DAILY for Cholesterol Management, #30 TAB 0 Refills Tamsulosin (Tamsulosin) 0.4 Mg Cap 0.4 MG HS for Manage Prostate Problems, #30 CAP 0 Refills Mekhi Perez MD Oct 13, 2017 12:26
[2017-10-13 13:20] LABS: INTERNATIONAL NORMALIZED RATIO 1.1 RATIO; PROTHROMBIN TIME - PATIENT 11.5 SEC (9.8-11.6)
[2017-10-13] MEDS: SODIUM CHLOR 0.9% 1000 ML INJ 1,000 ML IV SCH (15:39)
[2017-10-13] MEDS: WARFARIN SOD 3 MG TAB PO SCH (15:42)
[2017-10-13 16:00] VITALS: BP 111/62; PULSE 69; RESP 22; TEMP 97.3; O2SAT 95
[2017-10-13] MEDS ORDERED: WARFARIN SOD 3 MG TAB PO ONE (16:00)
[2017-10-13] MEDS ORDERED: OXYGENDME NAS.CANULA (17:05)
== END 2017-10-13 19:37 | disposition home health service (06) | DRG 342 ==
LOC: PHED 14:24 → PHEDA 18:49 → HPAC 20:04 → N06B 10-09 00:35
PROVIDERS: ADMIT Hospitalist; ATTEND Hospitalist
PROC: 3E1M38Z Irrigation of Peritoneal Cavity using Irrigating Substance, Percutaneous Approach (ICD-10-PCS; 2017-10-08)
PROC: 0DTJ0ZZ Resection of Appendix, Open Approach (ICD-10-PCS; principal; 2017-10-08 20:45)
DX: K35.80 Unspecified acute appendicitis (principal); I47.2 Ventricular tachycardia; J44.9 Chronic obstructive pulmonary disease, unspecified; I48.0 Paroxysmal atrial fibrillation; M41.9 Scoliosis, unspecified; E66.01 Morbid (severe) obesity due to excess calories; E11.9 Type 2 diabetes mellitus without complications; I10 Essential (primary) hypertension; N40.1 Benign prostatic hyperplasia with lower urinary tract symptoms; R35.0 Frequency of micturition; Z79.82 Long term (current) use of aspirin; I25.10 Atherosclerotic heart disease of native coronary artery without angina pectoris; I25.2 Old myocardial infarction; K42.9 Umbilical hernia without obstruction or gangrene; E78.5 Hyperlipidemia, unspecified; Z87.891 Personal history of nicotine dependence; Z82.49 Family history of ischemic heart disease and other diseases of the circulatory system; K57.90 Diverticulosis of intestine, part unspecified, without perforation or abscess without bleeding; Z68.38 Body mass index [BMI] 38.0-38.9, adult; G47.33 Obstructive sleep apnea (adult) (pediatric); Z53.31 Laparoscopic surgical procedure converted to open procedure; R26.81 Unsteadiness on feet
CPT/HCPCS: 74177; 78452; 80048; 80053; 81001; 83036; 83605; 83690; 83735; 84100; 84439; 84443; 84484; 85007; 85025; 85027; 85610; 88304; 93005; 93017; 93306; 94150; 94618; 94640; 94664; 96372; 96374; A9502; C9113; J0330; J0500; J1170; J1200; J1650; J2270; J2543; J2710; J2785; J3010; J7030; J7120; Q9967